=== PATIENT | female | born 2000 | race Caucasian/White ===

== ENCOUNTER 2023-07-20 17:34 | Inpatient (IN) | payer BC, OTHER, SELFPAY ==
[2023-07-20] VITALS (16 sets, daily range): BP systolic 98–128; BP diastolic 53–79; PULSE 93–115; RESP 16–18; TEMP 36.6–37.6
[2023-07-20 18:58] LABS: Hematocrit 34.6 % (36.0-48.0); Hemoglobin 11.2 g/dL (12.0-16.0); Mean Corpuscular HGB Conc 32.4 g/dL (29.9-35.2); Mean Corpuscular Hemoglobin 26.9 pg (26.7-34.0); Mean Platelet Volume 9.1 fL (9.5-13.5); Platelet Count 279 10^3/uL (150-450); Red Blood Count 4.17 10^6/uL (4.20-5.40); Red Cell Distribution Width 15.6 % (11.0-15.0); White Blood Count 10.9 10^3/uL (4.0-11.0)
[2023-07-20] MEDS: DINOPROSTONE 10 MG VAG INSERT.ER VAGINAL (19:00)
[2023-07-20 19:10] LABS: Amphetamine Screen Urine NEGATIVE (NEGATIVE); Barbiturates Screen Urine NEGATIVE (NEGATIVE); Benzodiazepines Screen Urine NEGATIVE (NEGATIVE); Buprenorphine Screen Urine NEGATIVE (NEGATIVE); Cannabinoid Screen Urine NEGATIVE (NEGATIVE); Cocaine Screen Urine NEGATIVE (NEGATIVE); Methadone Screen Urine NEGATIVE (NEGATIVE); Methamphetamines Screen Urine NEGATIVE (NEGATIVE); Opiate Screen Urine NEGATIVE (NEGATIVE); Oxycodone Screen Urine NEGATIVE (NEGATIVE); Phencyclidine Screen Urine NEGATIVE (NEGATIVE); Tricyclic Antidepressant Urine NEGATIVE (NEGATIVE)
[2023-07-20] MEDS: BUSPIRONE HCL 15 MG TABLET PO (21:12)
[2023-07-20] MEDS: IRON POLYSACCHARIDE COMPLEX 180 MG CAPSULE PO (21:12)
[2023-07-20] MEDS: LAMOTRIGINE 25 MG TABLET PO (21:12)
[2023-07-20] MEDS: INSULIN GLARGINE 300 UNIT/3 ML INSULN.PEN 38 UNIT SQ (21:13)
[2023-07-21] VITALS (53 sets, daily range): BP systolic 102–169; BP diastolic 55–95; PULSE 72–131; RESP 16–20; TEMP 36.6–37.1
[2023-07-21] MEDS: OXYTOCIN/0.9 % SODIUM CHLORIDE 10 UNITS/500 ML PLAST..BAG 3 UNIT IV (09:13)
[2023-07-21] MEDS: LACTATED RINGER'S SOLUTION 1,000 ML 125 ML IV ×2 (09:15→17:31)
[2023-07-21] MEDS: OMEPRAZOLE 40 MG CAPSULE.DR PO (09:15)
[2023-07-21] MEDS: BUSPIRONE HCL 15 MG TABLET PO ×2 (09:16→22:19)
[2023-07-21] MEDS: IRON POLYSACCHARIDE COMPLEX 180 MG CAPSULE PO ×2 (09:16→22:19)
[2023-07-21] MEDS: LAMOTRIGINE 25 MG TABLET PO ×2 (09:17→22:19)
--- NOTE | 2023-07-21 11:50 | PC.NURSE ---
1005 one hr post prandial BS is 116 per pt
--- NOTE | 2023-07-21 11:52 | PC.NURSE ---
1005 one hour postprandial BS 115 per pt
--- NOTE | 2023-07-21 16:37 | PC.NURSE ---
1620 Nivia notified of pt's inability to sit in a position which allows for monitoring due to pain, requesting epidural and order received for same, Dr Ramos called for epidural.
[2023-07-21] MEDS: ROPIVACAINE HCL/PF 400 MG/200 ML PREMIX 6 MG EPIDURAL (17:32)
[2023-07-21] MEDS: FENTANYL CITRATE/PF 100 MCG/2 ML VIAL EPIDURAL (17:33)
[2023-07-21] MEDS: LIDOCAINE HCL 2% PF 100 MG/5 ML VIAL INJ (17:33)
--- NOTE | 2023-07-21 19:36 | PM.EN ---
Event Note Event Note: patient feels urge to push. SVE /0 station. RN to remove catheter at this time .
--- NOTE | 2023-07-21 21:06 | PM.OBPRCVD ---
Procedure Procedure: with second degree repair events: Gestational Diabetes (insulin dependent ), Labor Induction and Labor Augmentation Intrapartal events: None Induction method: per pitocin protocol Delivery augmentation: rupture of membranes Delivery monitor: external FHT and external uterine Route of delivery: Episiotomy Description: none Laceration description: perineal - 2nd degree Delivery repair: Vicryl Estimated blood loss (mL): 350 Anesthesia type: Epidural Disposition: no change Infant Delivery date: 07/21/23 Gender: male presentation: vertex Placental delivery description: Spontaneous cord description: 3 Vessels heart rate - 1 minute: 100 bpm or Greater respiratory effort - 1 minute: Spontaneous/Strong Cry muscle tone - 1 minute: Active Movement reflex response - 1 minute: Minimal Response color - 1 minute: Bluish Hands or Feet total score - 1 minute: 8 heart rate - 5 minute: 100 bpm or Greater respiratory effort - 5 minute: Spontaneous/Strong Cry muscle tone - 5 minute: Active Movement reflex response - 5 minute: Prompt Response color - 5 minute: Bluish Hands or Feet total score - 5 minute: 9
[2023-07-21] MEDS: LIDOCAINE VISCOUS 2% 15 ML SOLUTION 5 ML TOPICAL (21:17)
[2023-07-21] MEDS: OXYTOCIN/0.9 % SODIUM CHLORIDE 20 UNITS/1,000 ML PLAST..BAG 125 UNIT IV (21:17)
--- NOTE | 2023-07-21 21:30 | PM.OBHP ---
OB - H&P: HPI History of Present Illness Chief complaint: Induction : 1 Para: 0 Gestational age based on last menstrual period: 38.5 Indications for induction: other (GDM insulin dependent ) History of Present Dating criteria: LMP confirmed by 1st trimester US care: good care Ultrasounds: normal 1st trimester US, normal mid trimester US and other (also saw MFM at [facility] for scans ) complications: gestational diabetes (insulin dependent) Medical complications OB: other (obesity) Labs Blood type: O (+) positive Rubella: immune RPR/VDLR: nonreactive GBS status: negative HBsAG: negative Review of Systems ROS Status of ROS: 10 or more systems reviewed and unremarkable except as noted in history and below Psychiatric: Reports: anxiety and other (history of ADHD, bipolar, depression, anxiety, GERD, migraines) PFSH PFSH Medical History (Updated 07/21/23 @ 21:38 by RITA LYN APRN, JAYLA) Insulin dependent gestational diabetes mellitus (GDM), antepartum Dehiscence of appendectomy wound ?T81.31XA - Disruption of external operation (surgical) wound, not elsewhere classified, initial encounter (ICD-10) Hx of migraines ?Z86.69 - Personal history of other diseases of the nervous system and sense organs (ICD-10) Postural orthostatic tachycardia syndrome [POTS] ?G90.A - Postural orthostatic tachycardia syndrome [POTS] (ICD-10) Bipolar disorder ?F31.9 - Bipolar disorder, unspecified (ICD-10) Surgical History (Updated 07/20/23 @ 18:49 by Anita Romeo) History of appendectomy ?Z90.49 - Acquired absence of other specified parts of digestive tract (ICD-10) Family History (Updated 07/20/23 @ 18:50 by Anita Romeo) Grandmother Family history of diabetes mellitus Family history of hypertension Grandfather Family history of diabetes mellitus Mother Family history of diabetes mellitus Family history of hypertension Social History Highest level of school completed/degree received: some college, no degree Meds Home Medications and Allergies Home Medications Medication Instructions Recorded Confirmed Type buspirone 15 mg tablet mg 07/20/23 History cholecalciferol (vitamin D3) 50 07/20/23 History mcg (2,000 unit) tablet cyproheptadine 4 mg tablet mg 07/20/23 History docusate sodium 100 mg capsule mg PO 07/20/23 History insulin glargine 100 unit/mL (3 38 unit subcut QDAY 07/20/23 07/20/23 History mL) subcutaneous pen lamotrigine 25 mg tablet mg 07/20/23 History loratadine 10 mg tablet mg 07/20/23 History magnesium oxide 400 mg (241.3 mg mg 07/20/23 History magnesium) tablet omeprazole 40 mg capsule,delayed mg 07/20/23 History release riboflavin (vitamin B2) 100 mg mg 07/20/23 History tablet (Vitamin B-2) Allergies Allergy/AdvReac Type Severity Reaction Status Date / Time penicillin G Allergy Severe throat Verified 07/20/23 18:38 swelling Exam Narrative Exam Narrative: assessment negative Constitutional Vital Signs, click to edit/add: Last Vital Signs Temp 98.7 F 07/21/23 17:53 Pulse 126 H 07/21/23 21:22 Resp 16 07/21/23 17:53 BP 136/72 07/21/23 21:22 O2 Del Method Room Air 07/21/23 05:25 Documenting provider has reviewed patient's vital signs: yes Common normals: no apparent distress General appearance: cooperative and comfortable Orientation/consciousness: Yes awake, Yes oriented to person, Yes oriented to place and Yes oriented to time HENMT Common normals: normocephalic Eye Common normals: EOMs intact bilaterally Neck & C-Spine Common normals: no lymphadenopathy Lymph Lymphatic: no lymphadenopathy noted Respiratory Common normals: normal respiratory effort Auscultation: clear to auscultation bilaterally Cardio Common normals: regular rate and regular rhythm Rate: regular rate Rhythm: regular rhythm GI Common normals: Normal to inspection, nondistended, normoactive bowel sounds present Common normals: no CVA tenderness Back & Pelvis Common normals: no CVA tenderness Extremity Common normals: normal to inspection and full ROM Neuro Common normals: oriented x3 Sensorium/orientation: awake, alert, oriented to person, oriented to place and oriented to time Psych Psychiatry clinicians, please identify where your Mental Status Exam is documented: Mental Status Exam documented in the separate MSE Common normals: mental status grossly normal, thought process normal and cooperative OB - A/P Assessment and Plan (1) GDM, class A2: (2) Term : Plan Induction of labor due to GDM Class A2
[2023-07-21] MEDS: IBUPROFEN 400 MG TABLET 800 MG PO (22:18)
[2023-07-22] VITALS (7 sets, daily range): BP systolic 114–125; BP diastolic 64–70; PULSE 96–110; RESP 16; TEMP 35.2–36.8
[2023-07-22] MEDS: BENZOCAINE/MENTHOL 85 GRAM SPRAY BOTTLE 1 APPLIC TOPICAL (02:28)
[2023-07-22] MEDS: GLYCERIN/WITCH HAZEL PADS 1 PAD TOPICAL (02:28)
[2023-07-22] MEDS: IBUPROFEN 400 MG TABLET 800 MG PO ×3 (06:15→20:43)
[2023-07-22 06:21] LABS: Basophils Percent Auto 0.1 % (0.2-2.0); Eosinophils Percent Auto 0.1 % (0.9-7.0); Hematocrit 28.8 % (36.0-48.0); Hemoglobin 9.1 g/dL (12.0-16.0); Immature Granulocytes Abs Auto 0.12 10^3/uL (0.00-0.03); Immature Granulocytes Pct Auto 0.9 % (0.0-0.5); Lymphocytes Absolute Auto 1.9 10^3/uL (1.2-3.8); Mean Corpuscular HGB Conc 31.6 g/dL (29.9-35.2); Mean Corpuscular Hemoglobin 26.7 pg (26.7-34.0); Mean Corpuscular Volume 84.5 fL (81.0-99.0); Mean Platelet Volume 9.2 fL (9.5-13.5); Monocytes Absolute Auto 0.9 10^3/uL (0.3-0.8); Monocytes Percent Auto 6.6 % (1.7-12.0); Neutrophils Absolute Auto 10.8 10^3/uL (1.4-6.5); Neutrophils Percent Auto 78.3 % (43.0-75.0); Platelet Count 245 10^3/uL (150-450); Red Blood Count 3.41 10^6/uL (4.20-5.40); Red Cell Distribution Width 15.8 % (11.0-15.0); White Blood Count 13.8 10^3/uL (4.0-11.0)
--- NOTE | 2023-07-22 07:12 | W.PC.ACHO ---
Registration Status: ADM IN Primary Language: Kazakh Preferred Language: Kazakh Active Medications Generic Name Dose Route Start Last Admin Trade Name [place] PRN Reason Stop Dose Admin Acetaminophen 1,000 mg 07/20/23 17:53 Acetaminophen 500 Mg Tablet PO Q6H PRN Fever Al Hydroxide/Mg Hydroxide 2,400 mg 07/21/23 21:20 Magnesium Hydroxide 2,400 Mg/10 Ml Oral.Susp PO Q6H PRN Dyspepsia Benzocaine/Menthol 1 applic 07/21/23 21:20 07/22/23 02:28 Benzocaine/Menthol 85 Gram [place] Bottle TOPICAL 1 applic Q2H PRN Administration Pain Buspirone HCl 15 mg 07/20/23 21:00 07/21/23 22:19 Buspirone Hcl 15 Mg Tablet PO 15 mg BID SELINA Administration Calcium Carbonate 500 mg 07/20/23 17:53 Calcium Carbonate 500 Mg (200mg Elemental) Tab Chew PO TID PRN Heartburn Carboprost Tromethamine 250 mcg 07/20/23 17:49 Carboprost Tromethamine 250 Mcg/Ml 1 Ml Vial IM 07/22/23 17:49 Q15M PRN Bleeding Diphtheria/Pertussis/Tetanus Vacc 0.5 ml 07/23/23 09:00 Adacel Diph,Pertuss(Acell),Tet Vac/Pf 0.5 Ml Adult Syringe IM 07/23/23 09:01 .ONCE ONE Docusate Sodium 100 mg 07/22/23 09:00 Docusate Sodium 100 Mg Capsule PO BID SELINA Ephedrine Sulfate 5 mg 07/21/23 16:24 Ephedrine Sulfate 50 Mg/Ml Vial IV 07/22/23 16:24 Q5M PRN Blood Pressure - Low Fentanyl Citrate 100 mcg 07/21/23 16:24 07/21/23 17:33 Fentanyl Citrate/Pf 100 Mcg/2 Ml Vial EPIDURAL 100 mcg ONCE PRN Administration epidural Lactated Ringer's 1,000 mls @ 125 mls/hr 07/20/23 18:00 07/21/23 17:31 Lactated Ringers IV 125 mls/hr .Q8H SELINA Administration Oxytocin/Sodium Chloride 10 units in 500 mls @ 6 mls/hr 07/21/23 06:30 07/21/23 09:13 Pitocin 10 Unit/500 Ml-Ns IV 1 milliunit/min CONT SELINA 3 mls/hr Administration Protocol 2 MILLIUNIT/MIN Ropivacaine/Sodium Chloride 400 mg in 200 mls @ 6 mls/hr 07/21/23 16:30 07/21/23 17:32 Naropin 0.2% 400 Mg/200 Ml Bag EPIDURAL 6 mls/hr Q24H SELINA Administration Ibuprofen 800 mg 07/21/23 21:30 07/22/23 06:15 Ibuprofen 400 Mg Tablet PO 800 mg Q8H SELINA Administration Insulin Glargine 38 unit 07/20/23 21:30 07/21/23 22:19 Insulin Glargine 300 Unit/3 Ml Insuln.Pen SQ Not Given Q24H SELINA Lamotrigine 25 mg 07/20/23 21:00 07/21/23 22:19 Lamotrigine 25 Mg Tablet PO 25 mg BID SELINA Administration Lidocaine 5 ml 07/20/23 17:49 07/21/23 21:17 Lidocaine Viscous 2% 15 Ml Solution TOPICAL 5 ml ONCE PRN Administration Pain Lidocaine 1 ml 07/20/23 17:49 Lidocaine Hcl 1% 200 Mg/20 Ml Mdv INJ ONCE PRN Pain Lidocaine 5 ml 07/21/23 16:24 07/21/23 17:33 Lidocaine Hcl 2% Pf 100 Mg/5 Ml Vial INJ 07/22/23 16:24 5 ml Q1H PRN Administration Pain Scale 7-10 Measles/Mumps/Rubella Vaccine Live 0.5 ml 07/23/23 09:00 Measles,Mumps,Rubella Vacc/Pf 0.5 Ml Vial SQ 07/23/23 09:01 .ONCE ONE Methylergonovine Maleate 0.2 mg 07/20/23 17:49 Methylergonovine Maleate 0.2 Mg/Ml Ampule IM 07/22/23 17:49 ONCE PRN Uterine Contractility/Contract Methylergonovine Maleate 0.2 mg 07/20/23 17:49 Methylergonovine Maleate 0.2 Mg Tablet PO 07/22/23 17:49 Q4H PRN Uterine Contractility/Contract Misoprostol 600 mcg 07/20/23 17:49 Misoprostol 100 Mcg Tablet PO 07/22/23 17:49 ONCE PRN Uterine Bleeding Misoprostol 800 mcg 07/20/23 17:49 Misoprostol 100 Mcg Tablet SL 07/22/23 17:49 ONCE PRN Uterine Bleeding Misoprostol 1,000 mcg 02/14/24 17:49 Misoprostol 100 Mcg Tablet RI 07/22/23 17:49 ONCE PRN Uterine Bleeding Omeprazole 40 mg 07/21/23 07:30 07/21/23 09:15 Omeprazole 40 Mg Capsule.Dr PO 40 mg 0730 SELINA Administration Ondansetron HCl 4 mg 07/20/23 17:49 Ondansetron Pf 4 Mg/2 Ml Vial IV Q6H PRN Nausea And Vomiting Ondansetron HCl 4 mg 07/20/23 17:49 Ondansetron 4 Mg Rapdis Tablet SL Q6H PRN Nausea And Vomiting Oxytocin 10 unit 07/20/23 17:49 Oxytocin 10 Unit/Ml Vial IM 07/22/23 17:49 ONCE PRN Bleeding Polysaccharide Iron Complex 180 mg 07/20/23 21:00 07/21/23 22:19 Iron Polysaccharide Complex 180 Mg Capsule PO 180 mg BID SELINA Administration Senna 17.2 mg 07/21/23 20:00 Sennosides 8.6 Mg Tablet PO QHS PRN Constipation Simethicone 80 mg 07/21/23 21:20 Simethicone 80 Mg Tab.Chew PO QID PRN Abdominal Distention Temazepam 15 mg 07/21/23 21:20 Temazepam 15 Mg Capsule PO QHS PRN Sleep Witch Aspen/Glycerin 1 pad 07/21/23 21:20 07/22/23 02:28 Glycerin/Witch [place] Pads TOPICAL 1 pad Q2H PRN Administration Pain Zolpidem Tartrate 5 mg 07/20/23 17:53 Zolpidem Tartrate 5 Mg Tablet PO HS PRN Sleep Diet Category Date Time Status Regular Consistency Diet Diet 07/21/23 21:20 Active Respiratory Oxygen Delivery Method Room Air Oxygen Delivery Method Room Air Oxygen Delivery Method Room Air Cardiology Heart Sounds Strong,Regular Heart Sounds Strong,Regular
[2023-07-22] MEDS: OMEPRAZOLE 40 MG CAPSULE.DR PO (08:49)
[2023-07-22] MEDS: DOCUSATE SODIUM 100 MG CAPSULE PO ×2 (08:50→21:00)
[2023-07-22] MEDS: BUSPIRONE HCL 15 MG TABLET PO ×2 (08:50→21:00)
[2023-07-22] MEDS: IRON POLYSACCHARIDE COMPLEX 180 MG CAPSULE PO ×2 (08:51→21:00)
[2023-07-22] MEDS: LAMOTRIGINE 25 MG TABLET PO ×2 (08:51→21:00)
--- NOTE | 2023-07-22 10:08 | P.OBPN_ITS ---
OB - PN: Subj Subjective Patient comments: no complaints and pain well controlled [place] status: doing well Exam Constitutional Vital Signs, click to edit/add: Last Vital Signs Temp 98.3 F 07/22/23 08:35 Pulse 100 H 07/22/23 08:35 Resp 16 07/22/23 08:35 BP 122/64 07/22/23 08:35 O2 Del Method Room Air 07/22/23 08:35 Documenting provider has reviewed patient's vital signs: yes Common normals: no apparent distress Respiratory Common normals: clear to auscultation bilaterally Cardio Common normals: regular rate and regular rhythm GI Common normals: Normal to inspection, nondistended, normoactive bowel sounds present Extremity Common normals: no clubbing, cyanosis or edema and no calf tenderness Results Labs Labs: Short CBC 07/22/23 Range/Units 05:54 WBC 13.8 H (4.0-11.0) 10^3/uL Hgb 9.1 L (12.0-16.0) g/dL Hct 28.8 L (36.0-48.0) % Plt Count 245 (150-450) 10^3/uL OB - PN: A/P Assessment and Plan (1) GDM, class A2: (2) Term : Plan - Vaginal Delivery day: 1 Plan: routine care Time Spent with Patient Time: Total time spent is greater than 50% in coordination of care (as documented) at patient's floor/unit and/or counseling patient: Total time spent with greater than 50% in coordination of care (as documented) at patient's floor/unit and/or counseling patient: less than 15 minutes
[2023-07-23] VITALS (8 sets, daily range): BP systolic 115–129; BP diastolic 60–69; PULSE 74–102; RESP 16; TEMP 36.7–36.8
[2023-07-23] MEDS: IBUPROFEN 400 MG TABLET 800 MG PO ×3 (05:00→21:18)
[2023-07-23] MEDS: OMEPRAZOLE 40 MG CAPSULE.DR PO (09:25)
[2023-07-23] MEDS: BUSPIRONE HCL 15 MG TABLET PO (09:26)
[2023-07-23] MEDS: DOCUSATE SODIUM 100 MG CAPSULE PO (09:26)
[2023-07-23] MEDS: IRON POLYSACCHARIDE COMPLEX 180 MG CAPSULE PO (09:27)
[2023-07-23] MEDS: LAMOTRIGINE 25 MG TABLET PO (09:27)
--- NOTE | 2023-07-23 12:26 | PM.OBPN ---
OB - PN: Subj Subjective Patient comments: no complaints and pain well controlled [place] status: doing well Exam Constitutional Vital Signs, click to edit/add: Last Vital Signs Temp 98.2 F 07/23/23 08:30 Pulse 100 H 07/23/23 08:30 Resp 16 07/23/23 08:30 BP 115/62 07/23/23 08:30 O2 Del Method Room Air 07/23/23 08:30 Documenting provider has reviewed patient's vital signs: yes Common normals: no apparent distress Respiratory Common normals: normal respiratory effort and clear to auscultation bilaterally Cardio Common normals: regular rate and regular rhythm GI Common normals: Normal to inspection, nondistended, normoactive bowel sounds present Extremity Common normals: no calf tenderness OB - PN: A/P Assessment and Plan (1) GDM, class A2: (2) Term : Plan - Vaginal Delivery day: 2 Plan: routine care, discharge home and follow up 6 weeks Time Spent with Patient Time: Total time spent is greater than 50% in coordination of care (as documented) at patient's floor/unit and/or counseling patient: Total time spent with greater than 50% in coordination of care (as documented) at patient's floor/unit and/or counseling patient: less than 15 minutes
[2023-07-23] MEDS: BENZOCAINE/MENTHOL 85 GRAM SPRAY BOTTLE 1 APPLIC TOPICAL (16:32)
[2023-07-23] MEDS: GLYCERIN/WITCH HAZEL PADS 1 PAD TOPICAL (16:32)
--- NOTE | 2023-07-23 19:25 | W.PC.ACHO ---
Registration Status: ADM IN Primary Language: Israeli Preferred Language: Israeli Active Medications Generic Name Dose Route Start Last Admin Trade Name Freq PRN Reason Stop Dose Admin Acetaminophen 1,000 mg 07/20/23 17:53 Acetaminophen 500 Mg Tablet PO Q6H PRN Fever Al Hydroxide/Mg Hydroxide 2,400 mg 07/21/23 21:20 Magnesium Hydroxide 2,400 Mg/10 Ml Oral.Susp PO Q6H PRN Dyspepsia Benzocaine/Menthol 1 applic 07/21/23 21:20 07/23/23 16:32 Benzocaine/Menthol 85 Gram [place] Bottle TOPICAL 1 applic Q2H PRN Administration Pain Buspirone HCl 15 mg 07/20/23 21:00 07/23/23 09:26 Buspirone Hcl 15 Mg Tablet PO 15 mg BID SELINA Administration Calcium Carbonate 500 mg 07/20/23 17:53 Calcium Carbonate 500 Mg (200mg Elemental) Tab Chew PO TID PRN Heartburn Docusate Sodium 100 mg 07/22/23 09:00 07/23/23 09:26 Docusate Sodium 100 Mg Capsule PO 100 mg BID [facility] Administration Lactated Ringer's 1,000 mls @ 125 mls/hr 07/20/23 18:00 07/22/23 07:31 Lactated Ringers IV Infused .Q8H SELINA Infusion Ibuprofen 800 mg 07/21/23 21:30 07/23/23 13:15 Ibuprofen 400 Mg Tablet PO 800 mg Q8H SELINA Administration Insulin Glargine 38 unit 07/20/23 21:30 07/23/23 00:23 Insulin Glargine 300 Unit/3 Ml Insuln.Pen SQ Not Given Q24H [facility] Lamotrigine 25 mg 07/20/23 21:00 07/23/23 09:27 Lamotrigine 25 Mg Tablet PO 25 mg BID SELINA Administration Omeprazole 40 mg 07/21/23 07:30 07/23/23 09:25 Omeprazole 40 Mg Capsule.Dr PO 40 mg 0730 SELINA Administration Ondansetron HCl 4 mg 07/20/23 17:49 Ondansetron Pf 4 Mg/2 Ml Vial IV Q6H PRN Nausea And Vomiting Ondansetron HCl 4 mg 07/20/23 17:49 Ondansetron 4 Mg Rapdis Tablet SL Q6H PRN Nausea And Vomiting Polysaccharide Iron Complex 180 mg 07/20/23 21:00 07/23/23 09:27 Iron Polysaccharide Complex 180 Mg Capsule PO 180 mg BID SELINA Administration Senna 17.2 mg 07/21/23 20:00 Sennosides 8.6 Mg Tablet PO QHS PRN Constipation Simethicone 80 mg 07/21/23 21:20 Simethicone 80 Mg Tab.Chew PO QID PRN Abdominal Distention Temazepam 15 mg 07/21/23 21:20 Temazepam 15 Mg Capsule PO QHS PRN Sleep Witch Aspen/Glycerin 1 pad 07/21/23 21:20 07/23/23 16:32 Glycerin/Witch [place] Pads TOPICAL 1 pad Q2H PRN Administration Pain Respiratory Oxygen Delivery Method Room Air Oxygen Delivery Method Room Air Oxygen Delivery Method Room Air Cardiology Heart Sounds Strong,Regular Bowels Date of Last Bowel Movement [ 07/23/23 All Quadrants] Date of Last Bowel Movement [ 07/23/23 All Quadrants]
--- NOTE | 2023-07-24 00:57 | PC.NURSE ---
Patient educated on the need to burp baby after syringe feedings. Explained to keep baby under radiant warmer but sit to the baby up to burp after feedings. Baby spit up three times during assessment with nurse recruitment internship. Nurse recruitment internship held and burped baby. Patient denies any needs and RN was informed.
== END 2023-07-23 23:55 | disposition home or self-care (01) | DRG 807 ==
PROVIDERS: Admitting Provider Midwife; PCP Family Medicine; Visit Provider Midwife
DX: O24.424 Gestational diabetes mellitus in childbirth, insulin controlled (principal); Z37.0 Single live birth; O70.1 Second degree perineal laceration during delivery; Z3A.38 38 weeks gestation of pregnancy; Z87.440 Personal history of urinary (tract) infections; O99.214 Obesity complicating childbirth; E66.01 Morbid (severe) obesity due to excess calories; O99.344 Other mental disorders complicating childbirth; F41.8 Other specified anxiety disorders; F31.9 Bipolar disorder, unspecified; O99.62 Diseases of the digestive system complicating childbirth; K21.9 Gastro-esophageal reflux disease without esophagitis
CPT/HCPCS: 36415; 59050; 59410; 80307; 82947; 85025; 85027; 86850; 86900; 86901; 96365; 96366; 96376; J2795; J3010

== ENCOUNTER 2023-07-26 08:36 | Outpatient (OUT) | payer BC, OTHER, SELFPAY ==
--- OUTSIDE RECORDS SUMMARY | 2023-07-26 08:44 | XMS_ITS | CCD ---
Author Name Unknown Address [id number] [place] [address] Organization [facility] Care Team Providers Care Power Generation Engineer Name Role Phone MARKER, SAGRARIO Admitting Unavailable MARKER, SAGRARIO Attending Unavailable REQUEST, NONE LISTED Primary Care Unavailable Martita Villarreal Primary Care Provider OLIVIER YATES Referring UnavailMARTITA Decker Primary Care Unavailable Yara Duong MD Primary Care Provider YARA DUONG Referring Unavailable YARA DUONG Primary Care Unavailable CHERELLE COSME Attending Unavailable RITA HINOJOSA Referring Unavailable YARA DUONG Primary Care Unavailable ISABEL ARAGON Attending Unavailable NESSA MALDONADO Referring Unavailable DERIAN BATES Attending Unavailable RITA HINOJOSA Referring Unavailable YARA DUONG Primary Care Unavailable Yara Duong MD Primary Care Provider Bill ARMATURE REPAIRER, [place] Unavailable MORENA MEJÍA Attending Unavailable FLORORITA Referring Unavailable FLORORITA Attending Unavailable MENA SMITH Attending Unavailable FLORORITA Referring Unavailable FLORO, RITA Campbell Attending Unavailable FLORO, RITA Campbell Referring Unavailable FLORO, RITA Campbell Attending Unavailable FLORO, RITA Campbell Referring Unavailable BILL, [place] Attending Unavailab le FLORORITA Attending Unavailable FLORO, RITA Campbell Referring Unavailable FLORO, RITA Campbell Attending Unavailable FLORO, RITA Campbell Attending Unavailable FLORO, RITA Campbell Referring Unavailable FLORO, RITA Campbell Referring Unavailable FLORO, RITA L Attending Unavailable RITA HINOJOSA Referring Unavailable RITA HINOJOSA Referring Unavailable RITA HINOJOSA Attending Unavailable RITA HINOJOSA Referring Unavailable Allergies Allergy Classification Reported Allergen(s) Allergy Type Date of Onset Reaction(s) Facility (1 source) Penicillin Drug Allergy [facility] Repository (3 sources) Penicillins; Translations: [PENICILLINS] Propensity to adverse reactions to drug 09-03-19 18 [facility] [employer] Work Phone: (9 sources) Penicillins Propensity to adverse reactions to drug 09-03-19 18 [facility] (1 source) Sulfamethoxazole / Trimethoprim Drug Allergy 06-30-19 22 [facility] (5 sources) Penicillin G Drug Allergy 10-06-19 23 Unknown [facility] Medications Current Medications Medication Drug Class(es) Dates Sig (Normalized) Sig (Original) busPIRone hydrochloride 15 mg oral tablet (15 sources) Start: 06-09-2023 take 1 tablet by mouth in the morning busPIRone (Buspar) 15 MG tablet Indications: Generalized anxiety disorder (CMS/HCC) Take 1 tablet (15 mg) by mouth in the morning and 1 tablet (15 mg) before bedtime. 180 tablet 1 06/09/2023 Active take 1 tablet by mouth twice roe ly busPIRone (BUSPAR) 15 MG tablet Take 15 mg by mouth 2 times daily 0 Active cetirizine hydrochloride 10 mg oral tablet (1 source) Histamine-1 Receptor Antagonist take 1 tablet by mouth once daily cetirizine (ZYRTEC) 10 MG tablet Take 10 mg by mouth daily 0 Active cholecalciferol 0.05 mg oral tablet (14 sources) Vitamin D Start: cholecalciferol, vitamin D3, 2,000 units tablet 1 tablet (2,000 Units total) in the morning. 0 02/05/2022 Active take 1 tablet by mouth in the mo rning cholecalciferol (Vitamin D-3) 50 MCG (1999 UT) tablet Take 50 mcg by mouth in the morning. 0 Active cyproheptadine hydrochloride 4 mg oral tablet (14 sources) Start: 01-28-2023 take 1 tablet by mouth at bedtime cyproheptadine (PERIACTIN) 4 mg tablet Indications: Migraine without aura, not intractable, without status migrainosus Take 1 tablet (4 mg total) by mouth in the morning and at bedtime. 60 tablet 5 01/28/2023 Active docusate sodium 100 mg oral capsule (14 sources) Start: 05-10-2023 take 1 capsule by mouth in the morning docusate sodium (Colace) 100 MG capsule Indications: Anemia during in third trimester Take 1 capsule (100 mg) by mouth in the morning and 1 capsule (100 mg) before bedtime. 60 capsule 4 05/10/2023 Active drospirenone 3 mg / ethinyl estradiol 0.03 mg oral tablet (3 sources) Progestin, Estrogen Start: 03-04-2020 take 1 tablet by mouth once daily drospirenone-ethiny l estradiol (SHIV 28) 3-0.03 MG TABS Indications: Irregular menses Take 1 tablet by mouth daily 1 packet 12 08/28/2020 Active ferrous sulfate 325 mg delayed release oral tablet (13 sources) Start: 05-10-2023 End: 05-09-2024 take 1 tablet by mouth in the morning ferrous sulfate (Fe Tabs) 325 (65 Fe) MG EC tablet Indications: Anemia during in third trimester Take 1 tablet (325 mg) by mouth in the morning and 1 tablet (325 mg) in the evening. Take with meals. Do not crush, chew, or split.. 60 tablet 4 05/10/2023 05/09/2024 Active hydrOXYzine pamoate 25 mg oral capsule (10 sources) Antihistamine hydrOXYzine (VISTARIL) 25 mg capsule Take 1 capsule (25 mg total) by mouth. 0 Active 3 ml insulin glargine 100 unt/ml pen injector (15 sources) Insulin Analog Start: 07-14-2023 End: 07-18-2023 insulin glargine (LANTUS SOLOSTAR U-100 INSULIN) 100 unit/mL (3 mL) insulin pen Indications: Insulin controlled gestational diabetes mellitus (GDM) during , antepartum Inject 38U subcutaneously into abdomen every evening, prime with 2U 15 mL 0 07/18/2023 Active Start: 07-05-2023 End: 07-12-2023 insulin glargine (LANTUS LAURA OSTAR U-100 INSULIN) 100 unit/mL (3 mL) insulin pen Indications: Insulin controlled gestational diabetes mellitus (GDM) during , antepartum Inject 40U subcutaneously into abdomen every evening, prime with 2U 15 mL 0 07/12/2023 Active Start: 06-21-2023 Insulin Glargi ne Solostar 100 UNIT/ML solution pen-injector Inject 20U subcutaneously into abdomen every evening, prime with 2U 0 06/21/2023 Active Start: 06-21-2023 End: 07-01-2023 insulin glargine (LANTUS LAURA OSTAR U-100 INSULIN) 100 unit/mL (3 mL) insulin pen Indications: Insulin controlled gestational diabetes mellitus (GDM) during , antepartum Inject 27U subcutaneously into abdomen every evening, prime with 2U 15 mL 0 07/01/2023 Active lamoTRIgine 25 mg oral tablet (13 sources) Mood Stabilizer, Anti-epileptic Agent Start: 12-21-2022 End: 12-21-2023 take 2 tablets by mouth in the morning lamoTRIgine (LaMICtal) 25 MG tablet Indications: Bipolar 1 disorder (CMS/HCC) Take 2 tablets (50 mg) by mouth in the morning. Take 2 tablets of 25mg. 180 tablet 3 12/21/2022 12/21/2023 Active take 1 tablet by leanna th in the morning, then take 1 tablet by mouth at bedtime lamoTRIgine (LaMICtal) 25 mg tablet Take 1 tablet (25 mg total) by mouth in the morning and 1 tablet (25 mg total) before bedtime. 0 Active loratadine 10 mg oral tablet (14 sources) Start: 05-26-2022 take 1 tablet by mouth once daily loratadine (Claritin) 10 MG tablet Indications: Seasonal allergies Take 1 tablet (10 mg) by mouth 1 (one) time each day at the same time 90 tablet 3 06/27/2023 Active magnesium oxide 400 mg oral tablet (14 sources) Start: 11-01-2022 take 1 tablet by mouth in the morning MAGnesium-Oxide 400 (240 Mg) MG tablet Take 400 mg by mouth in the morning. 0 11/01/2022 Active nortriptyline 25 mg oral capsule (1 source) Tricyclic Antidepressant Start: 06-16-2020 take 2 capsules by mouth once daily at bedtime nortriptyline (PAMELOR) 25 MG capsule TAKE TWO CAPSULES BY MOUTH EVERY NIGHT AT BEDTIME 60 capsule 0 06/16/2020 Active nystatin 100 unt/mg topical powder (9 sources) Polyene Antifungal Start: 07-14-2022 nystatin (MYCOSTATIN) powder 2 (two) times a day as needed. 0 07/14/2022 Active omeprazole 40 mg delayed release oral capsule (15 sources) Proton Pump Inhibitor take 1 capsule by mouth before mealtime omeprazole (PriLOSEC) [address] capsule Take 40 mg by mouth in the morning. Take before meals. 0 Active ondansetron 4 mg oral tablet (14 sources) Serotonin-3 Receptor Antagonist Start: 06-10-2022 take 1 tablet by mouth every twelve hours as needed for nausea and vomiting ondansetron (ZOFRAN) 4 mg tablet Indications: Chronic migraine w/o aura w/o status migrainosus, not intractable TAKE ONE TABLET BY MOUTH EVERY 12 HOURS NEEDED FOR NAUSEA AND VOMITING 20 tablet 2 06/10/2022 Active ondansetron (Zof ran) 4 MG tablet Take 4 mg by mouth every 12 (twelve) hours if needed. 0 Active no115/iron/folic ac id ( 19 ORAL) (9 sources) no115/i miladis/folic acid ( 19 ORAL) Take by mouth daily. 0 Active no115/i miladis/folic acid ( 19 ORAL) Take by mouth. 0 Active Vit-Fe Fumarate-FA ( Plus/Iron) 27-1 MG tablet (5 sources) Start: 05-10-2023 take 1 tablet by mouth in the morning Vit-Fe Fumarate-FA ( Plus/Iron) 27-1 MG tablet Indications: Encounter for supervision of normal first , third trimester Take 1 tablet by mouth in the morning. 30 tablet 11 05/10/2023 Active riboflavin 100 mg oral tablet (14 sources) Start: 06-10-2022 take 1 tablet by mouth in the morning riboflavin, vitamin B2, 100 mg tablet Indications: Migraine without aura, not intractable, without status migrainosus Take 1 tablet (100 mg total) by mouth in the morning. 30 tablet 5 06/10/2022 Active rizatriptan 10 mg oral tablet (1 source) Serotonin-1b and Serotonin-1d Receptor Agonist rizatriptan (MAXALT) 10 MG tablet Take 10 mg by mouth once as needed for Migraine May repeat in 2 hours if needed 0 Active sertraline 50 mg oral tablet (1 source) Serotonin Reuptake Inhibitor take 1 tablet by mouth once daily sertraline (ZOLOFT) 50 MG tablet Take 50 mg by mouth daily 0 Active Completed/Discontinued Medications Medication Drug Class(es) Dates Sig (Normalized) Sig (Original) metFORMIN hydrochloride 500 mg oral tablet (3 sources) Biguanide Start: 03-16-2022 End: 06-21-2023 take 1 tablet by mouth three times daily metFORMIN (GLUCOPHAGE) 500 mg tablet Take 1 tablet (500 mg total) by mouth 3 (three) times a day. 0 03/16/2022 06/21/2023 Discontinued (Therapy completed) ubidecarenone 100 mg oral capsule (3 sources) Start: 01-28-2023 End: 06-21-2023 take 1 capsule by mouth once in the morning coenzyme Q10 100 mg capsule Indications: Migraine without aura, not intractable, without status migrainosus Take 1 capsule (100 mg total) by mouth in the morning. 30 capsule 5 01/28/2023 06/21/2023 Discontinued (Therapy completed) Problems Active Problems Problem Classification Problem Date Documented Date Episodic/Chronic Anxiety disorders (20 sources) Anxiety; Translations: [Anxiety disorder, unspecified] Onset: 10-04-2018 01-20-2021 Chronic Cardiac dysrhythmias (6 sources) Postural orthostatic tachycardia syndrome ; Translations: [Postural orthostatic tachycardia syndrome (POTS)] Onset: 06-24-2022 06-21-2023 Chronic Diabetes or abnormal glucose tolerance complicating ; childbirth; or the puerperium (17 sources) Gestational diabetes mellitus; Translations: [Gestational diabetes mellitus in , unspecified control] Onset: 06-21-2023 06-21-2023 Episodic Disorders of lipid metabolism (5 sources) Mixed hyperlipidemia; Translations: [Mixed hyperlipidemia] Onset: 11-05-2021 11-12-2022 Chronic Esophageal disorders (5 sources) Gastroesophageal reflux disease; Translations: [Gastro-esophageal reflux disease without esophagitis] Onset: 06-06-2019 11-12-2022 Chronic Headache; including migraine (20 sources) Migraine without aura, not refractory ; Translations: [Migraine without aura, not intractable, without status migrainosus] Onset: 08-22-2018 01-20-2021 Chronic Malaise and fatigue (5 sources) Fatigue; Translations: [Chronic fatigue, unspecified] Onset: 01-18-2022 11-12-2022 Chronic Mood disorders (20 sources) Depressive disorder; Translations: [Depression] Onset: 01-20-2021 01-20-2021 Chronic Other complications of (1 source) Maternal obesity complicating , childbirth and the puerperium, antepartum; Translations: [Obesity complicating , unspecified trimester] 06-21-2023 Chronic Other complications of (4 sources) Abnormal findings on screening of mother; Translations: [Other abnormal findings on screening of mother] 07-19-2023 Episodic Other endocrine disorders (5 sources) Polycystic ovary; Translations: [Polycystic ovarian syndrome] Onset: 11-12-2022 11-12-2022 Chronic Other nutritional; endocrine; and metabolic disorders (5 sources) Body mass index 40+ - severely obese; Translations: [Morbid (severe) obesity due to excess calories] Onset: 12-14-2021 11-12-2022 Chronic Other and delivery including normal (2 sources) Normal ; Translations: [Encounter for supervision of normal first , third trimester] 07-19-2023 Episodic Other upper respiratory infections (5 sources) Chronic sinusitis; Translations: [Chronic sinusitis, unspecified] Onset: 06-29-2021 11-12-2022 Chronic Residual codes; unclassified (4 sources) Procedure and treatment not carried out due to patient leaving prior to being seen by health care provider; Translations: [PROC AND TX NOT CARRIED OUT PT LEAVE] Onset: 08-21-2018 Episodic Residual codes; unclassified (1 source) Gestation period, 34 weeks; Translations: [34 weeks gestation of ] 06-21-2023 Episodic Unclassified (1 source) Cancer cervix screening status; Translations: [Screening for cervical cancer] Unclassified (1 source) Gestational Diabetes Onset: 06-21-2023 Unclassified (1 source) [id number] Onset: 06-21-2023 Unclassified (5 sources) OB Reminders Onset: 01-14-2023 01-14-2023 Past or Other Problems Problem Classification Problem Date Documented Da te Episodic/Chronic Conditions associated with dizziness or vertigo (5 sources) Vertigo; Translations: [Dizziness and giddiness] Onset: 06-25-2022 11-12-2022 Episodic Diabetes mellitus without complication (5 sources) Type 2 diabetes mellitus without complication; Translations: [Type 2 diabetes mellitus without complications] Onset: 05-19-2021 Resolved: 06-27-2023 06-27-2023 Chronic Diabetes mellitus without complication (5 sources) Hyperglycemia; Translations: [Hyperglycemia, unspecified] Onset: 03-30-2021 11-12-2022 Episodic Mood disorders (14 sources) Mood disorders Onset: 01-28-2023 Resolved: 06-27-2023 01-28-2023 Unclassified (9 sources) Onset: 01-28-2023 01-28-2023 Results Test Name Value Interpretation Reference Range Facility [facility] CBC WITH PLATELET NO DI FFERENTIALon 07-20-2023 Erythrocyte distribution width (RBC) [Ratio] 15.6 % High 11.0 - 15.0 % [facility] Hematocrit (Bld) [Volume fraction] 34.6 % Low 36.0 - 48.0 % [facility] Hemoglobin (Bld) [Mass/Vol] 11.2 g/dL Low 12.0 - 16.0 g/dL [facility] Interpretation and review of laboratory results Abnormal [facility] MCH (RBC) [Entitic mass] 26.9 pg 26.7 - 34.0 pg [facility] MCHC (RBC) [Mass/Vol] 32.4 g/dL 29.9 - 35.2 g/dL [facility] MCV (RBC) [Entitic vol] 83.0 fL 81.0 - 99.0 fL [facility] Platelet mean volume (Bld) [Entitic vol] 9.1 fL Low 9.5 - 13.5 fL [facility] TB PLT 279 [facility] RBC 4.17 Low [facility] WBC 10.9 [facility] US BIOPHYSICAL PROFILE WO NON STRESS TESTINGon 07-19-2023 US BIOPHYSICAL PROFILE WO NON STRESS TESTING FINDINGS: Breathing Movements 2 Gross Body Movements 2 Tone 2 Qualitative amniotic fluid volume 2 A single, viable intrauterine is present. Heart rate is 136 bpm. FILIBERTO 12.0 cm. Cervix closed 4.0 cm length. Posterior lateral placenta. IMPRESSION: Normal biophysical profile. TRANSCRIBED BY: ELECTRONICALLY SIGNED BY: Binh Mares MD Normal Not Available US OB FOLLOW UP TRANSABDOMIN AL APPROACHon 07-15-2023 US OB FOLLOW UP TRANSABDOMINAL APPROACH This is a summary report. The complete report is available in the patient's medical record. If you cannot access the medical record, please contact the sending organization for a detailed fax or copy. US OB FOLLOW UP TRANSABDOMINAL APPROACH: 07/15/2023 4:28 PM CLINICAL HISTORY: Growth COMPARISON: July 12, 2023 Transabdominal ultrasound of the gravid uterus was performed. FINDINGS: A single live intrauterine is noted in cephalic position. cardiac activity measures approximately 145 beats per minute. The lower uterine segment and cervix are seen, and appear within normal limits. The cervix measures approximately 5.26 cm in longitudinal length. A grade 1-appearing placenta is posterior without evidence of an abnormal subplacental collection or previa. The amniotic fluid volume appears within normal limits for gestation. The FILIBERTO measures 11.3 cm. The following measurements were obtained: BPD 9.16 cm, HC 33.54 cm, AC 33.8 cm, FL 7.4 cm, which corresponds to an aggregate gestational age of 37 weeks 6 days. Estimated weight is 3303 g which places this fetus in the 59.1% based on LMP.. There is no free fluid noted in the maternal pelvis. Neither maternal ovary is identified. IMPRESSION: SINGLE LIVE INTRAUTERINE CORRESPONDING TO APPROXIMATELY 37 WEEKS 6 DAYS WITH AN EXPECTED DUE DATE OF JULY 30, 2023. NO GROSS ABNORMALITIES IDENTIFIED, WITHIN THE LIMITS OF THE STUDY. ELECTRONICALLY SIGNED BY: Cris Baeza DO Normal Not Available US BIOPHYSICAL PROFILE WO NON STRESS TESTINGon 07-12-2023 US BIOPHYSICAL PROFILE WO NON STRESS TESTING EXAM: US BIOPHYSICAL PROFILE WO NON STRESS TESTING DATE: 07/12/2023 10:02 AM CLINICAL HISTORY: Nonreactive stress test. Approximately 37 weeks gestation. COMPARISON: OB ultrasound 07/08/2023. TECHNIQUE: Grayscale evaluation of the fetus was performed for biophysical profile purposes and does not constitute an anatomic survey. FINDINGS: The study is somewhat limited by the patient's body habitus. cardiac activity is measured at 151 bpm. A single live intrauterine is noted in cephalic position. The cervix appears closed, measuring approximately 4.3 cm in longitudinal length. A grade 2 placenta is posterior without evidence of previa. The amniotic fluid index measures approximately 11.2 cm measured in 4 quadrants, which is 28th percentile for gestation. Points were awarded for the following: * body movement 2 out of 2 * tone 2 out of 2 * breathing 2 out of 2 *Amniotic fluid volume 2 out of 2 Ultrasound biophysical profile score 8 out of 8. IMPRESSION: ULTRASOUND BIOPHYSICAL PROFILE SCORE OF 8 OUT OF 8. ELECTRONICALLY SIGNED BY: Jerome Irwin MD Normal Not Available US BIOPHYSICAL PROFILE WO NON STRESS TESTINGon 07-08-2023 US BIOPHYSICAL PROFILE WO NON STRESS TESTING FINDINGS: Single live intrauterine . heart rate 141 bpm. Cephalic position. Grade 2 posterior placenta. Cervical length 4.1 cm. FILIBERTO 15.5 cm. Biophysical profile as follows: Breathin/2. Tone: 2/2. Gross movement: 2/2. FILIBERTO: 2/2. Total: 8/8. IMPRESSION: Impression: Biophysical profile with total 8/8. ELECTRONICALLY SIGNED BY: Dashawn López MD Normal Not Available US BIOPHYSICAL PROFILE WO NON STRESS TESTINGon 07-01-2023 US BIOPHYSICAL PROFILE WO NON STRESS TESTING EXAMINATION: BIOPHYSICAL PROFILE CLINICAL HISTORY: COMPARISONS: None available. FINDINGS: Transabdominal ultrasound of the gravid uterus was performed for 30 minutes or less for evaluation of biophysical profile with scoring as follows: 2 out of 2 for breathing 2 out of 2 for movement. 2 out of 2 for tone. 2 out of 2 for amniotic fluid volume. heart rate of149 beats per minute is documented. Amniotic fluid index calculated at 16.4, 64.8. IMPRESSION: BIOPHYSICAL PROFILE WITH A SCORE OF 8 OUT OF 8. CLINICAL CORRELATION RECOMMENDED. ELECTRONICALLY SIGNED BY: Iraj Khan MD Normal Not Available US OB FOLLOW UP TRANSABDOMIN AL APPROACHon 06-24-2023 US OB FOLLOW UP TRANSABDOMINAL APPROACH HISTORY: Gestational diabetes. COMPARISON: 06/17/2023. TECHNIQUE: Sonography of the pelvis was performed by transabdominal technique. Images were obtained and stored in a permanent archive. RESULT: Gestation: Single present. Position: Cephalic Placenta: Location: Posterior Grade: 1 Previa: absent Cervix: Closed measuring 5.3 cm in length. Cardiac activity: 134 bpm BPD: 8.7 cm HC: 30.8 cm AC: 32.1 cm FL: 7.0 cm Amniotic fluid: 124 cc, 35th percentile Estimated weight (EFW): 5 pounds 13 ounces, 31st percentile Estimated gestational age: 35 weeks 3 days estimated gestational age by composite. Anatomy: No gross anomalies in the visualized anatomy. IMPRESSION: Single, live intrauterine with estimated 35 weeks 3 days gestational age. ELECTRONICALLY SIGNED BY: Jose Grissom MD Normal Not Available No Panel Informationon 06-21 [facility] OB FOLLOW UP TRANSABDOMIN AL APPROACHon 06-17-2023 OB FOLLOW UP TRANSABDOMINAL APPROACH This is a summary report. The complete report is available in the patient's medical record. If you cannot access the medical record, please contact the sending organization for a detailed fax or copy. US OB FOLLOW UP TRANSABDOMINAL APPROACH: 06/17/2023 4:14 PM CLINICAL HISTORY: Ultrasound of. OB, limited, for growth COMPARISON: June 10, 2023 Transabdominal ultrasound of the gravid uterus was performed. FINDINGS: A single live intrauterine is noted in cephalic position. cardiac activity measures approximately 134 beats per minute. The cervix measures approximately 5.58 cm in longitudinal length. A grade 1-appearing placenta is posterior without evidence of an abnormal subplacental collection or previa. The amniotic fluid volume appears within normal limits for gestation. The FILIBERTO is 11.61 cm The following measurements were obtained: BPD 8.52 cm, HC 30.8 cm, AC 30.3 cm, FL 6.8 cm, which corresponds to an aggregate gestational age of 34 weeks 3 days. Estimated weight is 2429 g. This places this fetus in the 31.6 percentile based on LMP. . There is no free fluid noted in the maternal pelvis. Neither maternal ovary is identified. IMPRESSION: SINGLE LIVE INTRAUTERINE CORRESPONDING TO APPROXIMATELY 34 WEEKS 3 DAYS WITH AN EXPECTED DUE DATE OF JULY 26, 2023.. NO GROSS ABNORMALITIES IDENTIFIED, WITHIN THE LIMITS OF THE STUDY. ELECTRONICALLY SIGNED BY: Cris Baeza DO Normal Not Available US OB FOLLOW UP TRANSABDOMIN AL APPROACHon 06-10-2023 OB FOLLOW UP TRANSABDOMINAL APPROACH US OB FOLLOW UP TRANSABDOMINAL APPROACH: 06/10/2023 4:15 PM CLINICAL HISTORY: . COMPARISON: Transabdominal ultrasound of the gravid uterus was performed. FINDINGS: A single live intrauterine is noted in cephalic position. cardiac activity measures approximately 143 beats per minute. The cervix measures approximately 4.17 cm cm in longitudinal length. A grade 1-appearing placenta is posterior without evidence of an abnormal subplacental collection or previa. The amniotic fluid volume appears within normal limits for gestation. It measures 15.68 cm The following measurements were obtained: BPD 8.42 cm, HC 30.54 cm, AC 30.03 cm, FL 6.6 cm, which corresponds to an aggregate gestational age of 34 weeks 0 days. Estimated weight is 2322 g . cerebral ventricles, posterior fossa, spine, kidneys, urinary bladder, four-chamber heart, diaphragm, stomach, three-vessel cord, cord insertion and extremities appear within normal limits. There is no free fluid noted in the maternal pelvis. Neither maternal ovary is identified. IMPRESSION: SINGLE LIVE INTRAUTERINE CORRESPONDING TO APPROXIMATELY 34 WEEKS 0 DAYS WITH AN EXPECTED DUE date with expected due date of July 22, 2023 NO GROSS ABNORMALITIES IDENTIFIED, WITHIN THE LIMITS OF THE STUDY. ELECTRONICALLY SIGNED BY: Cris Baeza DO Normal Not Available US OB FOLLOW UP TRANSABDOMIN AL APPROACHon 05-23-2023 US OB FOLLOW UP TRANSABDOMINAL APPROACH US OB FOLLOW UP TRANSABDOMINAL APPROACH: 05/23/2023 4:55 PM CLINICAL HISTORY: Ultrasound. COMPARISON: March 14, 2023 Transabdominal ultrasound of the gravid uterus was performed. FINDINGS: A single live intrauterine is noted in cephalic position. cardiac activity measures approximately 138 beats per minute. The cervix measures approximately 5.44 cm in longitudinal length. A grade 1-appearing placenta is fundal without evidence of an abnormal subplacental collection or previa. The amniotic fluid index appears within normal limits for gestation. It measures 12.87 cm The following measurements were obtained: BPD 7.46 cm, HC 27.82 cm, AC 26.81 cm, FL 5.85 cm, which corresponds to an aggregate gestational age of 30 weeks 3 days. Estimated weight is 1617 g which places this fetus in the 18.4 percentile. There is no free fluid noted in the maternal pelvis. Neither maternal ovary is identified. IMPRESSION: SINGLE LIVE INTRAUTERINE CORRESPONDING TO APPROXIMATELY 30 WEEKS 3 DAYS WITH AN EXPECTED DUE DATE OF JULY 29, 2023. NO GROSS ABNORMALITIES IDENTIFIED, WITHIN THE LIMITS OF THE STUDY. ELECTRONICALLY SIGNED BY: Cris Baeza DO Normal Not Available Chlamydia/GC by PCR Brandi Sw abon 05-09-2023 Chlamydia Dna(Pcr) Not detected [facility] Gonorrhoeae Dna(Pcr) Not detected [facility] Glucose tolerance, 1 houron 05-09-2023 Glucose Tolerance Test 1 Hour 206 [facility] CBC without diffon Hematocrit (Bld) [Volume fraction] 35.3 % [facility] Hemoglobin (Bld) [Mass/Vol] 11.5 g/dL [facility] Platelets (Bld) [#/Vol] 286 10*3/uL [facility] HIV 1&2 AB/AG Screen (P24 AG )on 01-11-2023 HIV 1&2 AB/AG Non-Reactive [facility] Hepatitis B surface antigeno n 01-11-2023 Hepatitis B Surface Antigen Non-Reactive [facility] Hepatitis C(HCV) Ab w/ Refle x to PCRon 01-11-2023 HCV Ab Ql (S) Non-Reactive [facility] No Panel InformationOrdered By: Elissa Pham on 01-11-2023 [facility] Rubella IGG immune statuson 01-11-2023 Rubella immune IgG 2.64 [facility] Syphilis Total(Unknown Syphi lis Status)Ordered By: Elissa Pham on 01-11-2023 Syphilis Non-Reactive [facility] Type and screenon 01-11-2023 Abo/Rh(D) Positive [facility] Comprehensive Metabolic Pane chandrika 11-09-2021 Albumin [Mass/Vol] 4.4 g/dL Normal 3.6-5.1 Santos [facility] [employer] Comment on above: Performed By: #### L IPD, CMP #### [facility] [address] [place], [place] [id number] Albumin/Globulin [Mass ratio] 1.6 {ratio} Normal 1.0-2.5 [facility] [employer] Comment on above: Performed By: #### L IPD, CMP #### [facility] [address] [place], [place] [id number] ALP [Catalytic activity/Vol] 115 U/L Normal 35-119 [facility] [employer] Comment on above: Performed By: #### L IPD, CMP #### [facility] [address] [facility] [place] [id number] ALT [Catalytic activity/Vol] 31 U/L Normal 6-33 [facility] Comment on above: Result Comment: 05/06 Female reference range changed. Performed By: #### L IPD, CMP #### [facility] [address] [facility] [address] [facility] [place] [id number] Anion gap [Moles/Vol] 16 mmol/L Normal 12-20 [facility] Comment on above: Result Comment: Effe ctive 06/11/2019 reference range changed. Performed By: #### L IPD, CMP #### [facility] [address] [facility] [place] [id number] AST [Catalytic activity/Vol] 21 U/L Normal 9-34 [facility] Comment on above: Performed By: #### L IPD, CMP #### [facility] [address] [facility] [place] [id number] Bilirubin [Mass/Vol] 0.31 mg/dL Normal 0.30-1.20 [facility] Comment on above: Performed By: #### L IPD, CMP #### [facility] [address] [facility] [id number] BUN/CREA 19 Ratio Normal 6-22 [facility] Comment on above: Performed By: #### L IPD, CMP #### [facility] [address] [place], [place] [id number] Calcium [Mass/Vol] 9.5 mg/dL Normal 8.6-10.2 [facility] Comment on above: Performed By: #### L IPD, CMP #### [facility] [address] [facility] [place] [id number] Chloride [Moles/Vol] 101 mmol/L Normal 98-107 [facility] Comment on above: Performed By: #### L IPD, CMP #### [facility] [address] [facility] [place] [id number] CO2 [Moles/Vol] 25 mmol/L Normal 20-31 [facility] Comment on above: Performed By: #### L IPD, CMP #### [facility] [address] [facility] [id number] Creatinine [Mass/Vol] 0.6 mg/dL Normal 0.6-1.4 [facility] [employer] Comment on above: Performed By: #### L IPD, CMP #### [facility] [address] [place], [place] [id number] eGFRAA 156 mL/min/1.73m2 Normal >60 [facility] [employer] Comment on above: Performed By: #### L IPD, CMP #### [facility] [address] [place], [place] [id number] eGFRNAA 129 mL/min/1.73m2 Normal >60 [facility] [employer] Comment on above: Performed By: #### L IPD, CMP #### [facility] [address] [place], [place] [id number] Globulin (S) [Mass/Vol] 2.8 g/dL Normal 1.9-3.7 N [facility] [employer] Comment on above: Performed By: #### L IPD, CMP #### [facility] [address] [place], [place] [id number] Glucose [Mass/Vol] 107 mg/dL High 65-99 [place] [employer] Comment on above: Result Comment: For FASTING Glucose --- ADA reference ranges: Normal 65-99 mg/dl Prediabetes 100-125 Diabetes >/= 126 Performed By: #### L IPD, CMP #### [facility] [address] [place], [place] [id number] Potassium [Moles/Vol] 4.3 mmol/L Normal 3.5-5.5 [facility] [employer] Comment on above: Performed By: #### L IPD, CMP #### [facility] [address] [place], [place] [id number] Protein [Mass/Vol] 7.2 g/dL Normal 6.1-8.1 [place] [employer] Comment on above: Performed By: #### L IPD, CMP #### [facility] [address] [place], [place] [id number] Sodium [Moles/Vol] 137 mmol/L Normal 135-146 [place] [employer] Comment on above: Performed By: #### L IPD, CMP #### [facility] [address] [place], [place] [id number] Urea nitrogen [Mass/Vol] 11 mg/dL Normal 7-25 [facility] Comment on above: Performed By: #### L IPD, CMP #### [facility] [address] [place], [place] [id number] Lipid Panelon 11-09-2021 Cholesterol [Mass/Vol] 233 mg/dL High 125-200 [facility] Comment on above: Result Comment: Low risk < 200mg/dL Borderline risk 201-239 mg/dl High risk > or equal to 240 Performed By: #### L IPD, CMP #### [facility] [address] [place], [place] [id number] Cholesterol in HDL [Mass/Vol] 52 mg/dL Normal >40 [facility] Comment on above: Result Comment: High Cardiovascular Risk HDL <40 mg/dL Low Cardiovascular Risk HDL > or equal to 60 mg/dl Performed By: #### L IPD, CMP #### [facility] [address] [place], [place] [id number] Cholesterol in LDL [Mass/Vol] 162 mg/dL Normal [facility] Comment on above: Result Comment: LDL ATP III CLASSIFICATION LDL less than 100 mg/dl Optimal LDL 100-129 mg/dl Near or above optimal LDL 130-159 Borderline high LDL 160-189 High LDL greater than 189 mg/dl Very High Performed By: #### L IPD, CMP #### [facility] [address] [place], [place] [id number] Cholesterol in VLDL [Mass/Vol] 19 mg/dL Normal [facility] Comment on above: Performed By: #### L IPD, CMP #### [facility] [address] [place], [place] [id number] Cholesterol.total/Asiya sterol in HDL [Mass ratio] 4 {ratio} Normal [facility] Comment on above: Performed By: #### L IPD, CMP #### [facility] [address] [place], [place] [id number] Triglyceride [Mass/Vol] 94 mg/dL Normal 30-150 N [facility] Comment on above: Result Comment: TRIG ATPIII CLASSIFICATIONS TRIG less than 150 mg/dl Normal TRIG 150-199 mg/dl Borderline High TRIG 200-500 mg/dl High TRIG greather than 500 mg/dl Very High Performed By: #### L IPD, CMP #### [facility] [address] [place], [place] [id number] US Gallbladderon 08-21-2021 US Gallbladder FINDINGS: The liver is somewhat homogeneous, appearance suggestive of diffuse fatty infiltration, with focal sparing of the gallbladder fossa. No focal mass lesions or biliary dilatation, however, is identified. The gallbladder and biliary tree are unremarkable. No gallstones, pericholecystic fluid or gallbladder wall thickening is identified. The biliary tree is non-dilated. The common bile duct measures 3 mm in greatest dimension. The pancreas and right kidney are grossly unremarkable. No ascites is seen. IMPRESSION: 1. Diffuse fatty infiltration of the liver 2. Normal gallbladder and biliary tree appearance Report reported and signed by Binh Mares on 08/21/2021 1258 Normal [facility] Amylaseon 08-20-2021 CHUCK 20 U/L Low 28-100 [facility] Comment on above: Performed By: #### A MY, LIP #### [facility] [address] [place], [place] [id number] Lipaseon 08-20-2021 LIP2 22 IU/L Normal 13-60 [facility] Comment on above: Performed By: #### A MY, LIP #### [facility] [address] [place], [place] [id number] Complete Blood Count with Au to Diffon 08-10-2021 Basophils (Bld) [#/Vol] 0.02 10*3/uL Normal 0.00-0.20 [facility] Comment on above: Performed By: #### C MP, TSH reflex FT4, CBCAD #### [facility] [address] [place], [place] [id number] Basophils/100 WBC (Bld) 0.2 % Normal [facility] Comment on above: Performed By: #### C MP, TSH reflex FT4, CBCAD #### [facility] [address] [place], [place] [id number] Eosinophils (Bld) [#/Vol] 0.11 10*3/uL Normal 0.02-0.50 [facility] Comment on above: Performed By: #### C MP, TSH reflex FT4, CBCAD #### [facility] [address] [place], [place] [id number] Eosinophils/100 WBC (Bld) 1.2 % Normal [facility] Comment on above: Performed By: #### C MP, TSH reflex FT4, CBCAD #### [facility] [address] [place], [place] [id number] Erythrocyte distribution width (RBC) [Ratio] 14.0 % Normal 11.0-15.0 [facility] Comment on above: Performed By: #### C MP, TSH reflex FT4, CBCAD #### [facility] [address] [place], [place] [id number] Hematocrit (Bld) [Volume fraction] 39.5 % Normal 35.0-47.0 [facility] Comment on above: Performed By: #### C MP, TSH reflex FT4, CBCAD #### [facility] [address] [place], [place] [id number] Hemoglobin (Bld) [Mass/Vol] 12.3 g/dL Normal 11.6-15.5 [facility] Comment on above: Performed By: #### C MP, TSH reflex FT4, CBCAD #### [facility] [address] [place], [place] [id number] Lymphocytes (Bld) [#/Vol] 2.3 10*3/uL Normal 0.9-3.9 [facility] Comment on above: Performed By: #### C MP, TSH reflex FT4, CBCAD #### [facility] [address] [place], [place] [id number] Lymphocytes/100 WBC (Bld) 25.5 % Normal [facility] Comment on above: Performed By: #### C MP, TSH reflex FT4, CBCAD #### [facility] [address] [place], [place] [id number] MCH (RBC) [Entitic mass] 25.4 pg Low 27.0-33.0 [facility] Comment on above: Performed By: #### C MP, TSH reflex FT4, CBCAD #### [facility] [address] [place], [place] [id number] MCHC (RBC) [Mass/Vol] 31.1 g/dL Low 32.0-36.0 [facility] Comment on above: Performed By: #### C MP, TSH reflex FT4, CBCAD #### [facility] [address] [place], [place] [id number] MCV (RBC) [Entitic vol] 81 fL Normal 80-100 [facility] Comment on above: Performed By: #### C MP, TSH reflex FT4, CBCAD #### [facility] [address] [place], [place] [id number] Monocytes (Bld) [#/Vol] 0.7 10*3/uL Normal 0.2-0.9 [facility] Comment on above: Performed By: #### C MP, TSH reflex FT4, CBCAD #### [facility] [address] [place], [place] [id number] Monocytes/100 WBC (Bld) 7.3 % Normal [facility] Comment on above: Performed By: #### C MP, TSH reflex FT4, CBCAD #### [facility] [address] [place], [place] [id number] Neutrophils (Bld) [#/Vol] 5.8 10*3/uL Normal 1.5-7.8 [facility] Comment on above: Performed By: #### C MP, TSH reflex FT4, CBCAD #### [facility] [address] [place], [place] [id number] Neutrophils/100 WBC (Bld) 65.4 % Normal [facility] Comment on above: Performed By: #### C MP, TSH reflex FT4, CBCAD #### [facility] [address] [place], [place] [id number] Platelet mean volume (Bld) [Entitic vol] 8.80 fL Normal 7.50-12.50 [facility] Comment on above: Performed By: #### C MP, TSH reflex FT4, CBCAD #### [facility] [address] [place], [place] [id number] Platelets (Bld) [#/Vol] 353 10*3/uL Normal 140-400 [facility] Comment on above: Performed By: #### C MP, TSH reflex FT4, CBCAD #### [facility] [address] [place], [place] [id number] RBC (Bld) [#/Vol] 4.85 10*6/uL Normal 3.90-5.20 [facility] Comment on above: Performed By: #### C MP, TSH reflex FT4, CBCAD #### [facility] [address] [place], [place] [id number] RDW-SD 40.8 fL Normal 37.0-50.0 [facility] Comment on above: Performed By: #### C MP, TSH reflex FT4, CBCAD #### [facility] [address] [place], [place] [id number] WBC (Bld) [#/Vol] 8.9 10*3/uL Normal 3.8-11.0 [facility] [employer] Comment on above: Performed By: #### C MP, TSH reflex FT4, CBCAD #### [facility] [address] [place], [place] [id number] Comprehensive Metabolic Pane [facility] 08-10-2021 Albumin [Mass/Vol] 4.4 g/dL Normal 3.6-5.1 [facility] [employer] Comment on above: Performed By: #### C MP, TSH reflex FT4, CBCAD #### [facility] [address] [place], [place] [id number] Albumin/Globulin [Mass ratio] 1.6 {ratio} Normal 1.0-2.5 [facility] [employer] Comment on above: Performed By: #### C MP, TSH reflex FT4, CBCAD #### [facility] [address] [place], [place] [id number] ALP [Catalytic activity/Vol] 122 U/L High 35-119 [facility] [employer] Comment on above: Performed By: #### C MP, TSH reflex FT4, CBCAD #### [facility] [address] [place], [place] [id number] ALT [Catalytic activity/Vol] 33 U/L Normal 6-33 [facility] [employer] Comment on above: Result Comment: 05/06 Female reference range changed. Performed By: #### C MP, TSH reflex FT4, CBCAD #### [facility] [address] [place], [place] [id number] Anion gap [Moles/Vol] 16 mmol/L Normal 12-20 [facility] Comment on above: Result Comment: Effdru ctive 06/11/2019 reference range changed. Performed By: #### C MP, TSH reflex FT4, CBCAD #### [facility] [address] [place], [place] [id number] AST [Catalytic activity/Vol] 23 U/L Normal 9-34 [facility] Comment on above: Performed By: #### C MP, TSH reflex FT4, CBCAD #### [facility] [address] [place], [place] [id number] BUN/CREA 21 Ratio Normal 6-22 [facility] Comment on above: Performed By: #### C MP, TSH reflex FT4, CBCAD #### [facility] [address] [place], [place] [id number] Calcium [Mass/Vol] 9.5 mg/dL Normal 8.6-10.2 [facility] Comment on above: Performed By: #### C MP, TSH reflex FT4, CBCAD #### [facility] [address] [place], [place] [id number] Chloride [Moles/Vol] 104 mmol/L Normal 98-107 [facility] Comment on above: Performed By: #### C MP, TSH reflex FT4, CBCAD #### [facility] [address] [place], [place] [id number] CO2 [Moles/Vol] 23 mmol/L Normal 20-31 [facility] Comment on above: Performed By: #### C MP, TSH reflex FT4, CBCAD #### [facility] [address] [place], [place] [id number] Creatinine [Mass/Vol] 0.5 mg/dL Low 0.6-1.4 [facility] Comment on above: Performed By: #### C MP, TSH reflex FT4, CBCAD #### [facility] [address] [place], [place] [id number] eGFRAA 191 mL/min/1.73m2 Normal >60 [place] [employer] Comment on above: Performed By: #### C MP, TSH reflex FT4, CBCAD #### [facility] [address] [place], [place] [id number] eGFRNAA 158 mL/min/1.73m2 Normal >60 [facility] Specialist Comment on above: Performed By: #### C MP, TSH reflex FT4, CBCAD #### [facility] [address] [place], [place] [id number] Globulin (S) [Mass/Vol] 2.7 g/dL Normal 1.9-3.7 [facility] Comment on above: Performed By: #### C MP, TSH reflex FT4, CBCAD #### [facility] [address] [place], [place] [id number] Glucose [Mass/Vol] 100 mg/dL High 65-99 [facility] Comment on above: Result Comment: For FASTING Glucose --- ADA reference ranges: Normal 65-99 mg/dl Prediabetes 100-125 Diabetes >/= 126 Performed By: #### C MP, TSH reflex FT4, CBCAD #### [facility] [address] [place], [place] [id number] Potassium [Moles/Vol] 4.5 mmol/L Normal 3.5-5.5 [facility] Comment on above: Performed By: #### C MP, TSH reflex FT4, CBCAD #### [facility] [address] [place], [place] [id number] Protein [Mass/Vol] 7.1 g/dL Normal 6.1-8.1 [facility] [place] [employer] Comment on above: Performed By: #### C MP, TSH reflex FT4, CBCAD #### [facility] [address] [place], [place] [id number] Sodium [Moles/Vol] 138 mmol/L Normal 135-[facility] [employer] Comment on above: Performed By: #### C MP, TSH reflex FT4, CBCAD #### [facility] [address] [place], [place] [id number] TBIL <0.3 Normal [facility] Comment on above: Performed By: #### C MP, TSH reflex FT4, CBCAD #### [facility] [address] [place], [place] [id number] Urea nitrogen [Mass/Vol] 10 mg/dL Normal 7-25 [facility] [employer] Comment on above: Performed By: #### C MP, TSH reflex FT4, CBCAD #### [facility] [address] [place], [place] [id number] TSH w/ Reflex to Free T4on 0 08-10-2021 TSH 2.060 uIU/mL Normal 0.400-4.500 [facility] [employer] Comment on above: Performed By: #### C MP, TSH reflex FT4, CBCAD #### [facility] [address] [place], [place] [id number] Cytologyon 08-28-2020 Cytology (NOTE) INTERPRETATION Cervical material, (ThinPrep vial, Imaging-assisted review): Specimen Adequacy: Satisfactory for evaluation. - Endocervical/transfo rmation zone component present. Descriptive Diagnosis: Negative for intraepithelial lesion or malignancy. Chemical Radiation Technician: WENDY William(ASCP) Electronically Signed Out seth/09/04/2020 Source: 1: Cervical material, (ThinPrep vial, Imaging-assisted review) Clinical History Oral Contraceptives Z12.4 Encounter for screening for malignant neoplasm of cervix LMP: 08/18/2020 GYNECOLOGIC CYTOLOGY REPORT Patient Name: ANA SCOTT [facility] Rec: [id number] Path Number: [id number] [facility] ANATOMIC PATHOLOGY [address] [place] [id number] [facility] Comment on above: Performed By: #### P PPVP #### [facility] [address] [place] [id number] Tool Coordinator: Morgan Cano MD Vital Signs Date Time Vital Sign Value Performing Clinician Madison becerra 07-19-2023 08:28-0500 Body mass index (BMI) [Ratio] 44.22 kg/m2 [facility] 07-19-2023 08:28-0500 Body weight 124.29 kg Rita Hinojosa CNM Work Phone: [facility] 07-19-2023 08:28-0500 Diastolic blood pressure 78 mm[Hg] Rita Hinojosa CNM Work Phone: [facility] 07-19-2023 08:28-0500 Systolic blood pressure 118 mm[Hg] Rita Hinojosa CNM Work Phone: [facility] 06-21-2023 11:45-0500 Body height 167.6 cm Cherelle Cosme RN Work Phone: [facility] 06-21-2023 11:45-0500 Body mass index (BMI) [Ratio] 44.39 kg/m2 Cherelle Cosme RN Work Phone: [facility] 06-21-2023 11:45-0500 Body weight 124.74 kg Cherelle Cosme RN Work Phone: [facility] 06-21-2023 11:01-0500 Body height 167.6 cm Isabel Aragon MD Work Phone: [facility] 06-21-2023 11:01-0500 Body mass index (BMI) [Ratio] 44.41 kg/m2 Isabel Aragon MD Work Phone: [facility] 06-21-2023 11:01-0500 Body weight 124.74 kg Isabel Aragon MD Work Phone: [facility] 06-21-2023 11:01-0500 Diastolic blood pressure 61 mm[Hg] Isabel Aragon MD Work Phone: [facility] 06-21-2023 11:01-0500 Heart rate 112 /min Isabel Aragon MD Work Phone: [facility] 06-21-2023 11:01-0500 Systolic blood pressure 120 mm[Hg] Isabel Aragon MD Work Phone: [facility] Encounters Encounter Date Encounter Type Care Provider Facility Start: 07-20-2023 Clinisync Result Encounter Rita Hinojosa CNM Work Phone: [facility] Unsolicited Start: 07-20-2023 Clinisync Result Encounter Rita Villarrealo CNM Work Phone: [facility] Unsolicited Start: 07-19-2023 Bamboo flowsheet Rita L Maurice ro CNM Work Phone: [facility] Start: 07-19-2023 Bamboo flowsheet Rita L Maurice ro CNM Work Phone: [facility] Start: 07-19-2023 Telephone encounter Ann Sherman RN [facility] Start: 07-19-2023 End: 07-20-2023 ambulatory RITA L FLORO Not Available Start: 07-19-2023 End: 07-20-2023 ambulatory RITA L FLORO Not Available Start: 07-19-2023 End: 07-19-2023 Subsequent care visit Rita Villarrealo CNM Work Phone: [facility] Comment on above: Non-reactive NST (no n-stress test) (Primary Dx); NST (non-stress test) nonreactive; Encounter for supervision of normal first , third trimester; Gestational diabetes mellitus (GDM) requiring insulin Start: 07-18-2023 Orders Only Chelsea puckett PA-C Work Phone: [facility] Comment on above: Insulin controlled g estational diabetes mellitus (GDM) during , antepartum Start: 07-15-2023 End: 07-16-2023 ambulatory RITA L FLORO Not Available Start: 07-12-2023 Bamboo flowsheet Rita L Maurice ro CNM Work Phone: [facility] Start: 07-12-2023 Bamboo flowsheet Rita L Maurice ro CNM Work Phone: [facility] Start: 07-12-2023 End: 07-13-2023 Orders Only Derian Bates MD Work Phone: [facility] Comment on above: Insulin controlled g estational diabetes mellitus (GDM) during , antepartum Start: 07-08-2023 End: 07-09-2023 ambulatory RITA L FLORO Not Available Start: 07-05-2023 End: 07-06-2023 ambulatory RITA L FLORO Not Available Start: 07-01-2023 End: 07-02-2023 ambulatory RITA L FLORO Not Available Start: 07-01-2023 End: 07-01-2023 ambulatory DERIAN MARINOURSHID [facility] Start: 07-01-2023 End: 07-01-2023 Office outpatient visit 15 minutes Derian Bates MD Work Phone: [facility] Comment on above: Diet controlled gest ational diabetes mellitus (GDM) in third trimester (Primary Dx); Insulin controlled gestational diabetes mellitus (GDM) during , antepartum Start: 06-29-2023 End: 06-29-2023 ambulatory [facility] Bernice [facility] Start: 06-28-2023 End: 06-29-2023 ambulatory RITA L FLORO Not Available Start: 06-27-2023 End: 06-27-2023 ambulatory [place] Not Available Start: 06-24-2023 End: 06-25-2023 ambulatory RITA L FLORO Not Available Start: 06-24-2023 Telephone encounter Roselia Meyer [facility] Start: 06-23-2023 Orders Only Ashanti Redmond rnal- Medicine at [facility] Comment on above: Insulin controlled g estational diabetes mellitus (GDM) during , antepartum (Primary Dx) Start: 06-21-2023 End: 06-21-2023 Office consultation new/estab patient 60 min Isabel Aragon MD Work Phone: [facility] Comment on above: Insulin controlled g estational diabetes mellitus (GDM) during , antepartum (Primary Dx); 34 weeks gestation of ; Severe obesity due to excess calories affecting , antepartum ([facility]); Bipolar affective disorder in remission ([facility]); Postural orthostatic tachycardia syndrome (POTS) Start: 06-21-2023 End: 06-21-2023 ambulatory CHERELLE COSME [facility] Start: 06-21-2023 End: 06-22-2023 ambulatory Cherelle Cosme RN Work Phone: [facility] [place] Comment on above: Gestational diabetes mellitus (GDM) in third trimester, gestational diabetes method of control unspecified Start: 06-17-2023 End: 06-18-2023 ambulatory RITA L FLORO Not Available Start: 06-15-2023 Chart abstracting Isabel Aragon MD Work Phone: Maternal- Medicine at [facility] [place] Start: 06-14-2023 End: 06-15-2023 ambulatory RITA L FLORO Not Available Start: 06-10-2023 End: 06-11-2023 ambulatory RITA L FLORO Not Available Start: 06-08-2023 End: 06-08-2023 ambulatory MENA SILVERSaniaAUGIE Not Available Start: 06-07-2023 End: 06-08-2023 ambulatory RITA L FLORO Not Available Start: 06-01-2023 End: 06-01-2023 ambulatory MORENA HORN Not Available Start: 05-23-2023 End: 05-24-2023 ambulatory RITA L FLORO Not Available Start: 05-10-2023 End: 05-10-2023 ambulatory MORENA HORN Not Available Start: 05-09-2023 End: 05-10-2023 ambulatory RITA L FLORO Not Available Start: 08-28-2020 End: 08-29-2020 Patient encounter procedure OLIVIER ROSALES [facility] Start: 08-28-2020 End: 08-28-2020 Subsequent hospital visit by physician Martita RODRIGUEZ Laboratory Comment on above: Screening for cervic al cancer Start: 08-21-2018 End: 08-22-2018 Patient encounter procedure SAGRARIO MARKER Facility:H1 Procedures Date Procedure Procedure Detail Performing Clinician Start: 07-20-2023 HP CBC WITH PLATEL ET NO DIFFERENTIAL Rita L Floro CNM Work Phone: Start: 06-21-[address] [facility] MEDICINE - DIABETES EDUCATION Rita Hinojosa ROLLWAY WORKER-CN Work Phone: Start: 06-21-2023 AMB REFERRAL TO [facility]ICINE - NUTRITION EDUCATION Rita Hinojosa [employer]LLW[employer] WORKER-CN Work Phone: Start: 05-09-2023 CHLAMYDIA/GC BY PCR BRANDI SWAB Not In System Ref Prov Start: 05-09-[address] gtt 3 specimens Not In System Ref Prov Start: 01-28-2023 Adult depression scr eening assessment Isabel Aragon MD Work Phone: Start: 01-11-2023 Antibody screen Isabel fuentes MD Work Phone: Start: 01-11-2023 Blood count complete automated Not In System Ref Prov Start: 01-11-2023 Hepatitis c antibody No t In System Ref Prov Start: 01-11-2023 HIV 1&2 AB/AG SCREEN (P24 AG) Not In System Ref Prov Start: 01-11-2023 Iaad ia hepatitis b surface antigen Not In System Ref Prov Start: 01-11-2023 TYPE AND SCREEN Not In System Ref Prov Start: 08-28-2020 Microscopic observat ion [Identifier] in Cervix by Cyto stain Isabel Aragon MD Work Phone: Plan of Treatment Date Care Activity Detail Author Start: 05-10-2033 DTaP,Tdap and Td Vaccines (3 - Td or Tdap) DTaP,Tdap and Td Vaccines (3 - Td or Tdap) [facility] Start: 12-27-2026 DTaP/Tdap/Td vaccine (2 - Td) DTaP/Tdap/Td vaccine (2 - Td) [employer] Work Phone: Start: 06-23-2024 End: 06-23-2024 US MFM with or without consult US MFM with or without consult Imaging Routine Insulin controlled gestational diabetes mellitus (GDM) during , antepartum Expected: 06/23/2024 (Approximate), Expires: 06/23/2024 [facility] Work Phone: Comment on above: Expected: 06/23/2024 (Approximate), Expires: 06/23/2024 Start: 06-21-2024 Adult BMI Screening Adult BMI Screen ing [facility] Start: 06-21-2024 Tobacco Screening Tobacco Screening [facility] Start: 05-27-2024 Adult BMI Screening Adult BMI Screen ing [facility] Start: 05-27-2024 Tobacco Screening Tobacco Screening [facility] Start: 05-09-2024 Screening for Chlamy tarun trachomatis Chlamydia Screening [facility] Start: 01-29-2024 Adult BMI Follow Up Plan Adult BMI Follow Up Plan [facility] Start: 01-29-2024 Depression Screening Depression Scre ening [facility] Start: 12-23-2023 End: 12-23-2023 Patient encounter procedure 12/23/2023 2:30 PM EDT Office Visit [facility] [address] [place] [phone] Sara Oreilly MD [address] [place] [address], [address] [place] [phone] [facility] Start: 12-02-2023 End: 12-02-2023 Patient encounter procedure 12/02/2023 1:00 PM EDT Office Visit [facility] [address] [facility] [place] [phone] Sara Oreilly MD [address] [place] [address], [address] [place] [phone] [facility] Start: 08-29-2023 Screening for malign ant neoplasm of cervix Pap Smear [facility] Start: 07-28-2023 End: 07-28-2023 Patient encounter procedure 07/28/2023 1:00 PM EST Office Visit [facility] [address] [place] [facility] [place] [phone] [place] NP [address] [place], [place] [phone] [facility] Start: 07-19-2023 End: 07-19-2024 US biophysical profile wo non stress testing [facility] Work Phone: Comment on above: Expected: 07/19/2023 , Expires: 07/19/2024 Start: 07-19-2023 End: 07-19-2023 Patient encounter procedure [facility] Comment on above: Arrived Start: 07-15-2023 End: 07-15-2023 Professional / ancillary services management 07/15/2023 4:15 PM EST Ancillary Procedure [facility] [address] [phone] [facility] Start: 07-12-2023 End: 07-12-2023 Patient encounter procedure 07/12/2023 8:30 AM EST Routine [facility] [address] [place] [address] Rita Hinojosa, CNM [address] [place] [address] Arrived [facility] Comment on above: Arrived Start: 07-01-2023 End: 07-01-2023 Telemedicine consultation with patient 07/01/2023 1:00 PM EST Telemedicine Maternal- Medicine at [facility] [place] [address] [place] [address] Derian Bates MD [address] [place] [address] [facility] at [facility] [place] Start: 06-29-2023 End: 06-29-2023 Patient encounter procedure 06/29/2023 8:00 AM EST Appointment [facility] [place] [address] [place] [address] [facility] [place] Start: 06-21-2023 End: 06-21-2023 Patient encounter procedure 06/21/2023 1:30 PM EST Office Visit [facility] at [facility] [place] [address] [place] [phone] Isabel Aragon MD [address] [place] [address] [facility] at [facility] [place] Start: 06-21-2023 End: 06-21-2023 ambulatory 06/21/2023 10:30 AM EST Support Visit [facility]- Medicine at [facility] [place] [address] [place] [phone] Cherelle Cosme RN [address], [address] [place] [address] Roselia Cabrera LD [facility] [place] Start: 02-04-2023 COVID-19 Vaccine ( season) COVID-19 Vaccine ( season) [facility] Start: 09-02-2021 End: 09-02-2021 Office Visit 09/02/2021 Office Visit Obstetrics and Gynecology Olivier Yates, THOR - LEIAM [address] [place] [address] [facility] Start: 09-04-2019 Screening for malign ant neoplasm of cervix Cervical cancer screen [facility] [employer] Phone: Start: 2014 COVID-19 Vaccine (1) COVID-19 Vaccin e (1) [facility] [employer] Phone: Start: 2014 Screening for Chlamy tarun trachomatis Chlamydia screen [facility] [employer] Phone: Start: 2013 HIV screening HIV screen [facility] Work Phone: Start: 2009 HPV vaccine (1 - 2-d ose series) HPV vaccine (1 - 2-dose series) [employer] Phone: Start: 09-04-1999 Varicella vaccine (1 of 2 - 2-dose childhood series) Varicella vaccine (1 of 2 - 2-dose childhood series) [facility]: Start: 1998 Hepatitis C screening Hepatitis C sc reen [facility] [employer] Work Phone: End: 08-28-2020 Cytopathology procedure, preparation of smear, genital source PAP SMEAR Lab Routine Screening for cervical cancer 1 Occurrences starting 08/28/2020 until 08/28/2020 [facility]: Comment on above: 1 Occurrences starti ng 08/28/2020 until 08/28/2020 Immunizations Immunization Date Immunization Notes Care Provider Fa cility 06-10-2023 ABRYSVO - Respirator y syncytial virus (RSV), vaccine, bivalent, protein subunit RSV prefusion F, diluent reconstituted, 0.5 mL, PF Rita Floro [facility] Work Phone: [facility] 05-10-2023 tetanus toxoid, redu yash diphtheria toxoid, and acellular pertussis vaccine, adsorbed Rita Floro [facility] Work Phone: [facility] 03-14-2023 influenza, injectabl e, quadrivalent, preservative free Rita Floro CN Work Phone: [facility] 03-04-2022 influenza, injectabl e, quadrivalent, preservative free Rita Floro CN Work Phone: [facility] 03-01-2021 Seasonal, quadrivale nt, recombinant, injectable influenza vaccine, preservative free Rita Floro CN Work Phone: [facility] 03-12-2019 influenza virus vaccine, unspecified formulation Martita Phil [facility] Work Phone: 03-12-2019 Influenza, injectabl e, Madin Jackson Canine Kidney, preservative free, quadrivalent Rita Floro [facility] Work Phone: [facility] 03-22-2018 influenza, injectabl e, quadrivalent, preservative free Rita Hinojosa [facility] Work Phone: [facility] 12-27-2016 tetanus toxoid, redu yash diphtheria toxoid, and acellular pertussis vaccine, adsorbed [facility] Work Phone: 2014 meningococcal ACWY vaccine, unspecified formulation [facility] Work Phone: Payers Date Payer Category Payer Unknown [id number] 2022 Unknown [id number] 2021 Unknown [id number] 2020 Private Health Insurance [id number] 2020 Private Health Insurance [id number] 1998 Unknown [id number] 2.16.84 0.1.210804.3.579.2.593 1998 Unknown [id number] 2.16.8 40.1.775195.3.579.2.173 1998 Unknown [id number] 2.16.8 40.1.282563.3.579.2.1286 1998 Unknown [id number] 2.16.8 40.1.870596.3.579.2.1286 1998 Unknown [id number] 2.16.84 0.1.959756.3.579.2.1286 1998 Unknown [id number] 2.16.84 0.1.067328.3.579.2.1286 1998 Unknown [id number] 2.16.84 0.1.166997.3.579.2.1259 1998 Unknown [id number] 2.16.84 0.1.911728.3.579.2.1259 1998 Unknown [id number] 2.16.84 0.1.050536.3.579.2.1258 1998 Unknown [id number] 2.16.84 0.1.225165.3.579.2.1258 1998 Unknown [id number] 2.16.84 0.1.631826.3.579.2.1258 1998 Unknown [id number] 2.16.84 0.1.460272.3.579.2.1258 1998 Unknown [id number] 2.16.84 0.1.919920.3.579.2.1258 1998 Unknown [id number] 2.16.84 0.1.715901.3.579.2.1258 1998 Unknown [id number] 2.16.84 0.1.409660.3.579.2.1258 1998 Unknown [id number] 2.16.84 0.1.116732.3.579.2.1258 1998 Unknown [id number] 2.16.84 0.1.539606.3.579.2.1258 1998 Unknown [id number] 2.16.84 0.1.933186.3.579.2.1258 1998 Unknown [id number] 2.16.84 0.1.253958.3.579.2.1258 1998 Unknown [id number] 2.16.84 0.1.925082.3.579.2.1258 1998 Unknown [id number] 2.16.84 0.1.721644.3.579.2.1258 1998 Unknown [id number] 2.16.840 .1.204383.3.579.2.1258 1998 Unknown [id number] 2.16.840 .1.607853.3.579.2.1258 1998 Unknown [id number] 2.16.840 .1.156048.3.579.2.1259 1998 Unknown [id number] 2.16.840 .1.929731.3.579.2.1259 1998 Unknown [id number] 2.16.840 .1.184554.3.579.2.1259 1998 Unknown [id number] 2.16.840 .1.291415.3.579.2.1259 1959 Unknown [id number] Social History Date Type Detail Facility Start: 08-28-2020 End: 11-05-2022 Tobacco smoking status [facility] Never smoker [facility] Start: 08-28-2020 End: 11-05-2022 Tobacco use and exposure Never used [employer] Phone: Start: 08-28-2020 Alcohol intake Current drinker of alcohol (finding) [employer] Phone: Start: 03-04-2020 Alcohol Comment occasionally [employer] Phone: Start: 1998 Sex Assigned At Female [employer] Phone: Start: 06-15-2023 End: 06-21-2023 Alcohol intake Current non-drinker of alcohol (finding) [facility] [employer] [facility] Start: 09-18-2019 End: 11-05-2022 History of Social function [facility] [employer] [facility] Start: 09-18-2019 End: 11-05-2022 Alcohol Use Disorder Identification Test - Consumption [AUDIT-C] [facility] Frequency of Alcohol Consumption Never [facility] Start: 09-29-2021 Alcohol Comment occ [facility] Start: 11-06-2022 [facility] Start: 04-04-2019 Gender identity Identifies as female gender (finding) [facility] Start: 04-04-2019 Sexual orientation Heterosexual (finding) [facility] Start: 06-27-2023 Alcohol intake Ex-drinker (finding) [facility] Within the last year , have you been afraid of your partner or ex-partner? No [facility] Are you now , , , , never or living with a partner? [facility] How often to you hav e a drink containing alcohol? Monthly or less [facility] How many standard dr inks containing alcohol do you have on a typical day? 1 or 2 [facility] How often do you hav e 6 or more drinks on 1 occasion? Never [facility] How hard is it for y ou to pay for the very basics like food, housing, medical care, and heating Not very hard [facility] Do you feel stress - tense, restless, nervous, or anxious, or unable to sleep at night because your mind is troubled all the time - these days [OSQ] Only a little [facility] (I/We) worried wheth er (my/our) food would run out before (I/we) got money to buy more. Sometimes true [facility] The food that (I/we) bought just didn't last, and (I/we) didn't have money to get more. Never true [facility] Start: 10-28-2022 Alcohol Comment monthly or less; caffeine: 1-2 cups per day [facility] Medical Equipment Procedure Code Equipment Code Equipment Original Text Equipment Identifier Dates by miscellaneous route. USE DIRECTED. [id number] Inject 20U subcutaneously into abdomen every evening, prime with 2U [id number] Start: 06-21-2023 USE 1 STRIP 4 TI MES DAILY [id number] Start: 06-07-2023 Inject 1 Lancet under the skin in the morning and 1 Lancet at noon and 1 Lancet in the evening and 1 Lancet before bedtime. [id number] Start: 06-07-2023 Goals Date Patient Goal Desired Activity /State Personal health goal Clinical Notes 06-21-2023 to 07-19-2023 Telephone Encounter - Ann Sherman RN - 07/19/2023 1:29 PM ESTTelephone Encounter - Ann Sherman RN - 07/19/2023 1:29 PM Lisa Hinojosa CNM - 07/19/2023 8:30 AM ESTPatient Instructions Note Date & Type Note Facility 07-19-2023 Miscellaneous Notes Called pt to discuss her insulin change. [facility] reviewed her blood sugars and would like her to increase her Lantus tonight to 38 units. She will be induced Tuesday she will take 1/2 of that dose the evening before.Pt verbalized understanding. documented in this encounter [facility] 07-19-2023 Telephone encounter Note Called pt to discuss her insulin change. [facility] reviewed her blood sugars and would like her to increase her Lantus tonight to 38 units. She will be induced Tuesday she will take 1/2 of that dose the evening before.Pt verbalized understanding. [facility] 07-19-2023 History of Present illness Narrative Subjective No chief complaint on file. Sabrina Zavaleta is a 22 y.o. at 38w3d with a working estimated date of delivery of 07/30/2023, by Ultrasound who presents for a routine visit. She denies vaginal bleeding, leakage of fluid, decreased movements, or contractions. Her is complicated by: obesity, GDM, insulin dependent Objective Physical Exam weight: 274 lb Expected Total Weight Gain: 11 lb-19 lb Pregravid BMI: 43.92 BP: 118/78 Urine glucose-negative,protein-negative Assessment/Plan Diagnoses and all orders for this visit: Non-reactive NST (non-stress test) NST (non-stress test) nonreactive - US biophysical profile wo non stress testing; Future Encounter for supervision of normal first , third trimester Gestational diabetes mellitus (GDM) requiring insulin Non reactive NST today BPP ordered, BPP is 8/8 today in the office SVE FT-/-3 posterior patient has Belcher score of 4. Discussed w patient, favorable cervix vs unfavorable cervix. PVU and agrees with plan of care to proceed with medical induction due to insuline dependent diabetes and elevated blood sugars Continue vitamin. Labs reviewed. GBS negative Expected mode of delivery Follow up in 2 weeks for post visit. Patient being induced tomorrow for insulin dependent GDM Sees MFAllegra who is managing her insulin and blood sugars. documented in this encounter [facility] 07-01-2023 History of Present illness Narrative REASON FOR TELEMEDICINE VIDEO OFFICE VISIT: Maternal GDM A2 on insulin. HISTORY OF PRESENT ILLNESS: Ana Zavaleta is a pleasant 22 y.o. G 2 P0 010 at 35w6d due on Estimated Date of Delivery: 07/30/23 . has been complicated with Maternal GDM A2 on insulin with elevated fasting blood glucose. Lantus was increased to 27 units at bedtime. Maternal POTS Syndrome which is stable. Currently the patient has no complaints. The patient denies nausea, vomiting, abdominal pain, vaginal bleeding, SOB or chest pain. Patient Active Problem List Diagnosis Migraine without aura, not intractable, without status migrainosus Anxiety Depression Chronic migraine w/o aura w/o status migrainosus, not intractable Diet controlled gestational diabetes mellitus (GDM) in third trimester ALLERGIES: Allergies Allergen Reactions Penicillins Hives CURRENT MEDICATIONS: Current Outpatient Medications: busPIRone (BUSPAR) 15 mg tablet, Take 1 tablet (15 mg total) by mouth in the morning and 1 tablet (15 mg total) before bedtime., Disp: , Rfl: cholecalciferol, vitamin D3, 2,000 units tablet, 1 tablet (2,000 Units total) in the morning., Disp: , Rfl: cyproheptadine (PERIACTIN) 4 mg tablet, Take 1 tablet (4 mg total) by mouth in the morning and at bedtime., Disp: 60 tablet, Rfl: 5 docusate sodium (COLACE) 100 mg capsule, Take 1 capsule (100 mg total) by mouth in the morning and 1 capsule (100 mg total) before bedtime., Disp: , Rfl: ferrous sulfate 325 (65 FE) mg EC tablet, Take 1 tablet (325 mg total) by mouth in the morning and 1 tablet (325 mg total) in the evening. Take with meals., Disp: , Rfl: hydrOXYzine (VISTARIL) 25 mg capsule, Take 1 capsule (25 mg total) by mouth. (Patient not taking: Reported on 06/21/2023), Disp: , Rfl: insulin glargine (LANTUS SOLOSTAR U-100 INSULIN) 100 unit/mL (3 mL) insulin pen, Inject 20U subcutaneously into abdomen every evening, prime with 2U, Disp: 15 mL, Rfl: 0 lamoTRIgine (LaMICtal) 25 mg tablet, Take 1 tablet (25 mg total) by mouth in the morning and 1 tablet (25 mg total) before bedtime., Disp: , Rfl: lancets (TRUEPLUS LANCETS) 28 gauge misc, by miscellaneous route. USE DIRECTED., Disp: , Rfl: loratadine (CLARITIN) 10 mg tablet, 1 tablet (10 mg total) in the morning., Disp: , Rfl: magnesium oxide (MAGOX) 400 mg tablet, Take 1 tablet (400 mg total) by mouth in the morning., Disp: 30 tablet, Rfl: 5 nystatin (MYCOSTATIN) powder, 2 (two) times a day as needed., Disp: , Rfl: omeprazole (PriLOSEC) 40 mg capsule, Take 1 capsule (40 mg total) by mouth every morning before breakfast., Disp: , Rfl: ondansetron (ZOFRAN) 4 mg tablet, TAKE ONE TABLET BY MOUTH EVERY 12 HOURS NEEDED FOR NAUSEA AND VOMITING, Disp: 20 tablet, Rfl: 2 pen needle, diabetic (BD ULTRA-FINE SHORT PEN NEEDLE) 31 gauge x 5/16 needle, Inject 20U subcutaneously into abdomen every evening, prime with 2U, Disp: 100 each, Rfl: 2 no115/iron/folic acid ( 19 ORAL), Take by mouth daily., Disp: , Rfl: riboflavin, vitamin B2, 100 mg tablet, Take 1 tablet (100 mg total) by mouth in the morning., Disp: 30 tablet, Rfl: 5 Past Medical History: Diagnosis Date Anxiety Bipolar 1 disorder ([facility]) Chronic fatigue Chronic migraine w/o aura w/o status migrainosus, not intractable Depression Diabetes mellitus ([facility]) TYPE 2 GERD (gastroesophageal reflux disease) Headache Mixed hyperlipidemia Obesity BMI 44.7 Panic disorder PCOS (polycystic ovarian syndrome) POTS (postural orthostatic tachycardia syndrome) Vertigo REVIEW OF SYSTEMS: Head and Neck: Negative for any dizziness and headaches. Cardiovascular and Respiratory System: Denies any chest pain, shortness of breath, and coughing. Abdominal and System: Denies any abdominal pain, nausea, vomiting, vaginal bleeding, and vaginal discharge RECOMMENDATION: 1. Lantus increased to 27 units at bedtime. 2. Continue testing and growth ultrasounds at her OB office. 3. Delivery at 39 weeks gestation which is already scheduled. Patient can be delivered at her local hospital. 4. Decrease Lantus by 50% the night of induction. Thank you for allowing me to participate in Ana Zavaleta care. If there are any questions, please do not hesitate to call me. Sincerely, DERIAN BATES MD documented in this encounter [facility] 06-24-2023 Miscellaneous Notes Pt sent in food log. Pt generally following the meal plan. Suggested pt may benefit from a starchy bedtime snack. Praised pt for all her efforts. No changes for now. documented in this encounter [facility] 06-24-2023 Telephone encounter Note Pt sent in food log. Pt generally following the meal plan. Suggested pt may benefit from a starchy bedtime snack. Praised pt for all her efforts. No changes for now. [facility] 06-21-2023 History of Present illness Narrative REASON FOR CONSULTATION: GDM noncompliant HISTORY OF PRESENT ILLNESS: Ana Zavaleta is a pleasant 22 y.o. at 34w3d due on Estimated Date of Delivery: 07/30/23. complicated by: GDMA2 vs [id number] Obesity, BMI 45 Postural orthostatic tachycardia syndrome (POTS) Bipolar disorder/ Depression, lamotriginne Chronic migraines PCOS, managed on metformin throughout 1st trimester With regards to diabetes, patient was suspected to have type 2 diabetes, however A1cs have been in the normal range (06/07/23 5.4%). Prior to and throughout the 1st trimester, due to history of PCOS diagnosis, patient was on metformin 500 mg b.i.d.. Glucose challenge test performed on 05/09/2023 was 206. Patient has been tracking logs since 05/23/2023, show persistent fasting hyperglycemia to the 100-110s with intermittent elevated 1 hour postprandials. She has not yet been started on any medical management. Earlier today patient had diabetic education with MFM team. Patient was not scheduled for an M ultrasound. Today, the patient is doing well. She denies headaches, vision changes, nausea, vomiting, right upper quadrant or epigastric pain, SOB or chest pain. She denies contractions, vaginal bleeding, leaking of fluid. She reports good movement. Aneuploidy screening: Declined due to financial reasons Carrier screening: Declined due to financial reasons PAST OBSTETRICAL HISTORY: OB History Para Term AB Living 2 1 SAB IAB Ectopic Multiple Live Births 1 # Outcome Date GA Lbr Jad/2nd Weight Sex Delivery Anes PTL Lv 2 Current 1 SAB 08/19/22 5w0d MEDICAL HISTORY: Past Medical History: Diagnosis Date Anxiety Bipolar 1 disorder ([facility]) Chronic fatigue Chronic migraine w/o aura w/o status migrainosus, not intractable Depression Diabetes mellitus ([facility]) TYPE 2 GERD (gastroesophageal reflux disease) Headache Mixed hyperlipidemia Obesity BMI 44.7 Panic disorder PCOS (polycystic ovarian syndrome) POTS (postural orthostatic tachycardia syndrome) Vertigo SURGICAL HISTORY: Past Surgical History: Procedure Laterality Date APPENDECTOMY WISDOM TOOTH EXTRACTION 06/2020 ALLERGIES: Allergies Allergen Reactions Penicillins Hives CURRENT MEDICATIONS: Current Outpatient Medications: busPIRone (BUSPAR) 15 mg tablet, Take 1 tablet (15 mg total) by mouth in the morning and 1 tablet (15 mg total) before bedtime., Disp: , Rfl: cholecalciferol, vitamin D3, 2,000 units tablet, 1 tablet (2,000 Units total) in the morning., Disp: , Rfl: cyproheptadine (PERIACTIN) 4 mg tablet, Take 1 tablet (4 mg total) by mouth in the morning and at bedtime., Disp: 60 tablet, Rfl: 5 docusate sodium (COLACE) 100 mg capsule, Take 1 capsule (100 mg total) by mouth in the morning and 1 capsule (100 mg total) before bedtime., Disp: , Rfl: ferrous sulfate 325 (65 FE) mg EC tablet, Take 1 tablet (325 mg total) by mouth in the morning and 1 tablet (325 mg total) in the evening. Take with meals., Disp: , Rfl: lamoTRIgine (LaMICtal) 25 mg tablet, Take 1 tablet (25 mg total) by mouth in the morning and 1 tablet (25 mg total) before bedtime., Disp: , Rfl: lancets (TRUEPLUS LANCETS) 28 gauge [facility] [place], by miscellaneous route. USE DIRECTED., Disp: , Rfl: loratadine (CLARITIN) 10 mg tablet, 1 tablet (10 mg total) in the morning., Disp: , Rfl: magnesium oxide (MAGOX) 400 mg tablet, Take 1 tablet (400 mg total) by mouth in the morning., Disp: 30 tablet, Rfl: 5 nystatin (MYCOSTATIN) powder, 2 (two) times a day as needed., Disp: , Rfl: omeprazole (PriLOSEC) 40 mg capsule, Take 1 capsule (40 mg total) by mouth every morning before breakfast., Disp: , Rfl: ondansetron (ZOFRAN) 4 mg tablet, TAKE ONE TABLET BY MOUTH EVERY 12 HOURS NEEDED FOR NAUSEA AND VOMITING, Disp: 20 tablet, Rfl: 2 no115/iron/folic acid ( 19 ORAL), Take by mouth daily., Disp: , Rfl: riboflavin, vitamin B2, 100 mg tablet, Take 1 tablet (100 mg total) by mouth in the morning., Disp: 30 tablet, Rfl: 5 hydrOXYzine (VISTARIL) 25 mg capsule, Take 1 capsule (25 mg total) by mouth. (Patient not taking: Reported on 06/21/2023), Disp: , Rfl: insulin glargine (LANTUS SOLOSTAR U-100 INSULIN) 100 unit/mL (3 mL) insulin pen, Inject 20U subcutaneously into abdomen every evening, prime with 2U, Disp: 15 mL, Rfl: 0 pen needle, diabetic (BD ULTRA-FINE SHORT PEN NEEDLE) 31 gauge x 5/16 needle, Inject 20U subcutaneously into abdomen every evening, prime with 2U, Disp: 100 each, Rfl: 2 REVIEW OF SYSTEMS: Head and Neck: Negative for any dizziness and headaches. Cardiovascular and Respiratory System: Denies any chest pain, shortness of breath, and coughing. Abdominal and System: Denies any abdominal pain, nausea, vomiting, vaginal bleeding, and vaginal discharge FAMILY/GENETIC HISTORY: No family history of VTE, cardiac defects and mental retardation . SOCIAL HISTORY:Patient denies tobacco use, alcohol use, or drug use. RECENT HOSPITALIZATION: REVIEW OF TESTS AND ULTRASOUND REPORTS: Referral records and [facility] chart were reviewed Pertinent Ultrasound findings are see formal ultrasound report. Abstract on 06/15/2023 Component Date Value Ref Range Status Syphilis 01/11/2023 NONREACTIVE Final Rubella immune IgG 01/11/2023 2.64 Final Abo/Rh(D) 01/11/2023 O Positive Final Antibody Screen 01/11/2023 NEGATIVE Final Chlamydia Dna(Pcr) 05/09/2023 NOT DETECTED Final Gonorrhoeae Dna(Pcr) 05/09/2023 NOT DETECTED Final HIV 1&2 AB/AG 01/11/2023 NONREACTIVE Final Hemoglobin 01/11/2023 11.5 Final Hematocrit 01/11/2023 35.3 Final Platelets 01/11/2023 286 Final Glucose Tolerance Test 1 Hour 05/09/2023 206 Final Hepatitis C Antibody 01/11/2023 NONREACTIVE Final Hepatitis B Surface Antigen 01/11/2023 NON REACTIVE Final HABITS: Patient activity no restrictions, diet no restrictions PHYSICAL EXAMINATION: BP 120/61 Pulse 112 Ht 167.6 cm (5' 5.98 ) Wt 124.7 kg (275 lb) LMP 10/15/2022 BMI 44.41 kg/m Well-appearing in no distress. Respirations not labored, speaking comfortably in full sentences Gravid abdomen OVERALL ASSESSMENT -Anajazmin Zavaleta is a pleasant 22 y.o. at 34w3d -GDMA2 vs [id number] -Obesity, BMI 45 -Postural orthostatic tachycardia syndrome (POTS) -Bipolar disorder/ Depression, lamotriginne -Chronic migraines -PCOS, managed on metformin throughout 1st trimester COUNSELING GDMA2 vs Type2 DM Patient was suspected to have type 2 diabetes, however A1cs have been in the normal range (06/07/23 5.4%). Prior to and throughout the 1st trimester, due to history of PCOS diagnosis, patient was on metformin 500 mg b.i.d.. I suspect that diagnosis of type 2 diabetes was based on prior metformin use. Glucose challenge test performed on 05/09/2023 was 206. Patient has been tracking logs since 05/23/2023, show persistent fasting hyperglycemia to the 100-110s with intermittent elevated 1 hour postprandials. She has not yet been started on any medical management. Earlier today patient had diabetic education with MFM team. Patient was not scheduled for an MFM ultrasound. Today, we discussed that gestational diabetes is a is a state of carbohydrate intolerance with subsequently insulin resistance and hyperglycemia. This is a malfunction or dysfunction of glucose sensors in the liver with inappropriate release of glucose followed by hyperinsulinemia followed by normal insulin secretion and then relatively deficiency in insulin secretion resulting in both hyperglycemia and associated hypertriglyceridemia. This along with placental hormones such as human placental lactogen and TNF alpha cause hyperglycemia. The patient eventually develops insulin resistance and hyperglycemia, thus the patient's insulin is not sufficient to achieve a normal glycemic state. I informed the patient that maternal hyperglycemia results in hyperglycemia leading to adverse outcomes in the growth and development. We reviewed the implications and risks of diabetes in . Diabetes in is associated with poorer outcomes if blood glucose levels are not well controlled. Potential effects of uncontrolled diabetes , or hyperglycemia, include: maternal risks (abnormal labors, prolonged labors, delivery, hemorrhage), risks (LGA profile, shoulder dystocia, stillbirth, delayed lung maturation) and subsequent risks ( hypoglycemia, polycythemia, hyperbilirubinemia with jaundice, seizures) In addition, women with diabetes in are at increased risk of developing hypertension diseases in ,such as gestational hypertension, or preeclampsia. Patient was explained that the high risk of shoulder dystocia in fetuses with EFW 4500 gm or higher. Long-term risk to offspring from poor maternal glycemic control include: obesity, cardiovascular disease, impaired glucose tolerance and Type 2 diabetes. Treatment for diabetes in : Lifestyle modification with a healthy diet and increasing physical activity can help manage hyperglycemia, and is therefore always encouraged. We briefly discussed diet modifications and physical activity. The mainstay of pharmacotherapy for the treatment of diabetes in remains insulin. Oral hypoglycemics, such as metformin, both cross the placenta and are more likely to fail compared to insulin. skilled nursing data on children whose mothers took oral hypoglycemic agents while is limited. Medication is typically initiated when >20-30% of the blood glucose values in one week are out of range. Risks and side effects of both insulin and oral agents were discussed. In discussion of the above, patients opts to initiating insulin, Lantus 20 units q.h.s. ordered. Glucose goals in : Fasting 60 - 95: Mean fasting glucose values are important in managing diabetes in women because they provide overall glycemic estimate, and are predictive of increased fat mass in the women s offspring. Increased fat mass has been shown to be associated with the development of childhood obesity, and diabetes. One hour postprandial 90 - 140: Postprandial measurements are important in management of diabetes in because they are associated with incidence of large for gestational age infants, and lower rates of delivery for cephalopelvic disproportion when well controlled. Discussed monitoring for hypogylcemia, and treatment of hypoglycemia. Discussed her current diet and her awareness of grams of carbohydrate per meal. Encouraged her to be aware of carbohydrate intake and note which foods causing values above goal. Encouraged her on diet modifications. Obesity MORBID, BMI 45 The patient has a BMI of > 40, which is a risk factor for adverse outcomes in . These possible complications including increased risks for miscarriage in the first trimester, congenital anomalies, hypertensive disorders of including preeclampsia, diabetes mellitus, demise, and delivery (with subsequent risks of wound infection, wound complications otherwise, and/or VTE). Due to the inability to monitor growth using fundal height measurements, serial growth assessment via US is recommended. We also recommend initiation of at least weekly ANFS at 36 weeks given the increased risk of demise in this setting. For women with a BMI>40 kg/m2, consider prophylactic low molecular weight heparin therapy for 3-5 days after or vaginal delivery. This is in addition to the use of sequential compression devices for the first 12-24 hours after surgery. For this extreme obesity, evidence favors a weight-based regimen of 0.5 mg/kg every 12 hours as thromboprophylaxis. Postural orthostatic tachycardia syndrome (POTS) Patient has remained asymptomatic since the 2nd trimester from a pots standpoint. She is currently managing symptoms with lifestyle modification. She has not on any medications. We reviewed the risks that is syncope Place on , including risk of placental abruption. Bipolar disorder/ Depression, lamotrigine Buspar: Adverse events have not been observed in animal reproduction studies. Due to lack of data, agents other than buspirone are preferred for use during . Consider discontinuing buspirone and using alternative therapies during unless there is a clear benefit to continuing treatment. Lamotrigine Lamotrigine has been safely used in for both epilepsy and history of bipolar disorder/depression. SUMMARY/RECOMMENDATION: Scheduled for [facility] ultrasound with growth in following week Third trimester A1c 06/07/2023: 5.4% Current blood glucose control: Poor control, has not been initiated on insulin despite fasting hyperglycemia since 05/13/2023 Medications: Initiated on Lantus 20 units q.h.s. Educated on signs symptoms of preeclampsia Monitor for movement growth ultrasounds every 4 weeks growth scan one week before planned delivery if attempt for a vaginal delivery Recommend the following for testing, which can be done with primary OB: NST/FILIBERTO weekly at 32 weeks NST twice weekly and FILIBERTO weekly at 36 weeks Delivery recommendations : Recommend delivery at [id number] Discuss delivery if estimated weight is >4500g Use 1/2 dose of insulin the night before her planned delivery. Will discuss at later gestation If she delivers by , recommend VTE prevention (LMWH 40mg daily) during hospitalization Obtain a 2-hour GTT 6-8 weeks . Also recommend yearly evaluation of blood glucose as patient is at an increased risk of developing diabetes later on. Monitor for signs symptoms of depression Follow up in [facility] with video visit in 1 week DISPOSITION: At this point the patient is in complete care of her boiler control technician. Patient does have ultrasound and office visit scheduled with us. Thank you for allowing me to participate in the care of Ana [place]. If there any questions please do not hesitate to contact us. Total time spent was 45 minutes: Preparing to see the patient (e.g., review of tests) Obtaining and/or reviewing separately obtained history Performing a medically appropriate examination and/or evaluation Counseling and educating the patient/family/caregiver Ordering medications, tests, or procedures Referring and communicating with other health reservoir caretaker (not separately reported) Documenting clinical information in the electronic or other health record Isabel Aragon MD Maternal- Medicine [facility] [address] [facility] [address] [place] [address] [facility], the CDC, and other organizations representing maternal and public health professionals recommend that , , and lactating people and those considering receive the COVID-19 vaccination. Vaccination is the best method to reduce maternal and complications of SARS-CoV-2 infection. This document was created with [employer] technology. Though I make every effort to review the dictation as it is transcribed, on occasion the spoken word can be misinterpreted by the technology leading to inappropriate words, phrases, or sentences. This note is addressed to the requesting provider as a consultation for clinical guidance. Specific medical abbreviations are occasionally used and those are generally approved by the [place]?Board of?Obstetrics and?Gynecology?as well as?Kayla s abbreviations. The above plan of care was based solely on the diagnoses for which a consultation was requested. ?More frequent testing may be indicated based on her other medical/obstetrical conditions. The management of other or medical conditions is beyond the scope of requested consultation and will continue to be followed by the primary boiler control technician or primary care provider. Note to patient: The Century Cures Act makes medical notes like these available to patients in the interest of transparency. However, be advised this is a medical document. It is intended as peer to peer communication. It is written in medical language and may contain abbreviations or verbiage that are unfamiliar. It may appear blunt or direct. Medical documents are intended to carry relevant information, facts as evident, and the clinical opinion of the practitioner. Headache/epigastric pain/blurry vision/swelling? Swelling in ankles Cramping/contractions? no Abnormal vaginal discharge? no Spotting/vaginal bleeding? no Loss of fluid like your water may have broken? no Cats in the home? yes Do you change the litter box? no Flu vaccine? yes Genetic testing done this here or other office? no Have you been seen here at [facility] in a previous ? N/a Recent ER visits or hospitalizations? no Bring blood sugar log or meter with you today? (Please bring them with you for every visit at [facility]) yes Traveled outside the country in the past 6 month no Any concerns that you would like me to mention to the provider today? no documented in this encounter [facility] [employer] 06-21-2023 History of Present illness Narrative DIABETES AND ASSESSMENT Type of diabetes: GDM Age at onset: 22 Duration: During this Still : OB History Para Term AB Living 2 0 0 0 1 0 SAB IAB Ectopic Multiple Live Births 1 0 0 0 0 Patient's last menstrual period was 10/15/2022. Estimated Date of Delivery: 07/30/23 No of wks at 1st visit:[id number] Results of glucose testing: Random 123 06/21/23 Date of one hour testing: Results: 206 05/09/23 Date of 3 hour Testing: Results A1C results and date:5.4% 06/07/23 Pre- BMI: Could not be calculated Calorie Prescription: Assessed Barriers to Education and Self Care [] Financial [] Anger [] Low Literacy [] Transportation [x] Anxiety [] Cogenitive deficit [] Lack of support [] Denial [] Other Other comments: Assessment DIABETES AND ASSESSMENT Mother of fetus Father of fetus Occupation and work hours Plating Equipment Tender Healthcare providers that care for you: OB Provider Family Doctor Link Cutter Name: Nivia Hinojosa CNM Name: Yara Duong MD Name: City: City: City: Last time seen: 06/21/23 Last time seen: Last time seen: Eye Doctor Dentist Other Doctors Name: Name: Name: City: City: City: Last time seen: Last time seen: Last time seen: OB History Para Term AB Living 2 1 SAB IAB Ectopic Multiple Live Births 1 # Outcome Date GA Lbr Jad/2nd Weight Sex Delivery Anes PTL Lv 2 Current 1 SAB 08/19/22 5w0d Allergies Allergen Reactions Penicillins Hives Current Outpatient Medications Medication Sig Dispense Refill busPIRone (BUSPAR) 15 mg tablet Take 1 tablet (15 mg total) by mouth in the morning and 1 tablet (15 mg total) before bedtime. cholecalciferol, vitamin D3, 2,000 units tablet 1 tablet (2,000 Units total) in the morning. cyproheptadine (PERIACTIN) 4 mg tablet Take 1 tablet (4 mg total) by mouth in the morning and at bedtime. 60 tablet 5 docusate sodium (COLACE) 100 mg capsule Take 1 capsule (100 mg total) by mouth in the morning and 1 capsule (100 mg total) before bedtime. lamoTRIgine (LaMICtal) 25 mg tablet Take 1 tablet (25 mg total) by mouth in the morning and 1 tablet (25 mg total) before bedtime. lancets (TRUEPLUS LANCETS) 28 gauge misc by miscellaneous route. USE DIRECTED. loratadine (CLARITIN) 10 mg tablet 1 tablet (10 mg total) in the morning. magnesium oxide (MAGOX) 400 mg tablet Take 1 tablet (400 mg total) by mouth in the morning. 30 tablet 5 nystatin (MYCOSTATIN) powder 2 (two) times a day as needed. omeprazole (PriLOSEC) 40 mg capsule Take 1 capsule (40 mg total) by mouth every morning before breakfast. ondansetron (ZOFRAN) 4 mg tablet TAKE ONE TABLET BY MOUTH EVERY 12 HOURS NEEDED FOR NAUSEA AND VOMITING 20 tablet 2 no115/iron/folic acid ( 19 ORAL) Take by mouth daily. riboflavin, vitamin B2, 100 mg tablet Take 1 tablet (100 mg total) by mouth in the morning. 30 tablet 5 coenzyme Q10 100 mg capsule Take 1 capsule (100 mg total) by mouth in the morning. (Patient not taking: Reported on 06/21/2023) 30 capsule 5 hydrOXYzine (VISTARIL) 25 mg capsule Take 1 capsule (25 mg total) by mouth. (Patient not taking: Reported on 06/21/2023) metFORMIN (GLUCOPHAGE) 500 mg tablet Take 1 tablet (500 mg total) by mouth 3 (three) times a day. (Patient not taking: Reported on 06/21/2023) No current facility-administered medications for this visit. Previous Hospitalizations None Past Surgical History: Procedure Laterality Date APPENDECTOMY WISDOM TOOTH EXTRACTION 06/2020 Personal diabetes history: History question Answer Diagnosis Date Comment Gestational Diabetes Unanswered Diabetes mellitus Yes Diabetes mellitus ([facility] [place] TYPE 2 Family History of diabetes: pertinent family history includes Diabetes in her maternal aunt, maternal grandfather, maternal grandmother, mother, and another family member. ROS: Constitutional: No problems Head and Neck: No problems Lungs and breathing: No problems Heart:: High cholesterol Blood disorders and other conditions: Anemia Mental health: Depression/anxiety and Bi-polar Kidney, Bladder, and Sexual History: No problems Circulation and Nerves: No problems Endocrine and Diabetes Conditions: Pre-diabetes, Insulin resistance, and Polycystic ovarian syndrome (PCOS) Stomach and Intestines: Nausea/vomiting and GERD (heartburn) Educational Level: associates degree Preferred Methods for Learning: Reading and Hands on demonstration Is there anything about your culture, islam, or personal beliefs we need to know about to care for you: Other None Primary Language spoken: Brazilian [22] Primary Language for learning: Brazilian Are you currently in a relationship where you are physically hurt, threatened or made to fee afraid? [] Yes [] No Animal Handler needed? [] Yes [] No Marital status/Living arrangements [x] [] Single [] Partner [x] Father of baby [] Friend [] Parent(s) [] Other family member [] Self Social History Social History Socioeconomic History Marital status: Spouse name: Not on file Number of children: Not on file Years of education: Not on file Highest education level: Not on file Occupational History Not on file Tobacco Use Smoking status: Never Smokeless tobacco: Never Vaping Use Vaping Use: Never used Substance and Sexual Activity Alcohol use: No Comment: occ Drug use: No Sexual activity: Yes Partners: Male control/protection: None Other Topics Concern Not on file Social History Narrative Not on file Social Determinants of Health Financial Resource Strain: Not on file Food Insecurity: No Food Insecurity (06/21/2023) Hunger Screening Food Insecurity - Worry: Never True Food Insecurity - Inability: Never True Transportation Needs: Not on file Physical Activity: Not on file Stress: Not on file Social Connections: Not on file Interpersonal Safety: Not on file Everyday Stress Level Stress Scale [] 1 Low [x] 2 [] 3 [] 4 [] 5 High Stress related to: overwhelmed; GDM Support systems: Very Good Comfort Level Are you currently experiencing any pain? [] Yes [x]No If yes, where: On thge following scale, [place] the number, which describes your current level of pain. [] 0 [] 1 [] 2 [] 3 [] 4 [] 5 [] 6 [] 7 [] 8 [] 9 [] 10 No Pain Worst Pain Possible How long does the pain last?: What do you do to help the pain go away? PLEASE COMPLETE THE FOLLOWING QUESTIONS - IF YOU HAVE DIABETES NOW OR HAVE HAD WITH A PREVIOUS HAVE YOU HAD ANY OF THE FOLLOWING SYMPTOMS OF LOW BLOOD SUGARS Shaky [] Yes [x] No Irritability [x] Yes [] No Heart Palpitations [] Yes [x] No Nervousness [x] Yes [] No Cold sweats [x] Yes [] No Headache [x] Yes [] No Passed out [] Yes [x] No Dizzy [x] Yes [] No Confusion [x] Yes [] No Seizures [] Yes [x] No What do you use to treat your low blood sugars? Snack with some sugar Diabetes Testing and Medication Use Yes No Do you currently use a glucose testing meter? If yes, how often do you test? Four times day [x] [] Did you take insulin during any of these previous pregnancies? [] [x] Have you ever received any diabetic education? If yes, where and when: [facility] Dietitian 06/01/23 [x] [] Patient and present for Diabetes Education. Given schedule to spread carbohydrates out throughout the day. Glucometer brought to appointment; demonstrated good knowledge base using glucometer. Instructed proper sharps disposal. Reviewed BG numbers from 06/14/23 - 06/21/23; noted all FBS and 5 PP elevated. Has had previous diagnosis of prediabetes; managed with weight loss and Metformin. Metformin stopped at 14 weeks gestation. Reported family history of diabetes. Discussed complications for mom and baby related to GDM. Random BG 123 today 06/21/23. Reviewed rapid and long acting insulin action times and recommended administration sites, timing and site rotation. Reviewed on insulin pen administration steps. Referred to Diabetes Self-Management Support Plan in folder. Discussed plan to check blood sugar four times daily, fasting and 1 hour after meals including sending them to weekly on Tuesday night/Tuesday and being active 30 minutes most days of the week with logging this on BG log weekly. Noted will contact weekly regarding BG log being reviewed and instructions/recommendations. Face to face time 65 minutes. . Nutritional Assessment Form Date: 06/21/2023 ALEX: Estimated Date of Delivery: 07/30/23 EGA: 34w3d Past Medical History: Diagnosis Date Anxiety Bipolar 1 disorder ([facility]) Chronic fatigue Chronic migraine w/o aura w/o status migrainosus, not intractable Depression Diabetes mellitus ([facility] [place]) TYPE 2 GERD (gastroesophageal reflux disease) Headache Mixed hyperlipidemia Obesity BMI 44.7 Panic disorder PCOS (polycystic ovarian syndrome) POTS (postural orthostatic tachycardia syndrome) Vertigo OB History 2 Para Term AB 1 Living SAB 1 IAB Ectopic Multiple Live Births Current Outpatient Medications Medication Sig Dispense Refill busPIRone (BUSPAR) 15 mg tablet Take 1 tablet (15 mg total) by mouth in the morning and 1 tablet (15 mg total) before bedtime. cholecalciferol, vitamin D3, 2,000 units tablet 1 tablet (2,000 Units total) in the morning. cyproheptadine (PERIACTIN) 4 mg tablet Take 1 tablet (4 mg total) by mouth in the morning and at bedtime. 60 tablet 5 docusate sodium (COLACE) 100 mg capsule Take 1 capsule (100 mg total) by mouth in the morning and 1 capsule (100 mg total) before bedtime. ferrous sulfate 325 (65 FE) mg EC tablet Take 1 tablet (325 mg total) by mouth in the morning and 1 tablet (325 mg total) in the evening. Take with meals. lamoTRIgine (LaMICtal) 25 mg tablet Take 1 tablet (25 mg total) by mouth in the morning and 1 tablet (25 mg total) before bedtime. lancets (TRUEPLUS LANCETS) 28 gauge misc by miscellaneous route. USE DIRECTED. loratadine (CLARITIN) 10 mg tablet 1 tablet (10 mg total) in the morning. magnesium oxide (MAGOX) 400 mg tablet Take 1 tablet (400 mg total) by mouth in the morning. 30 tablet 5 nystatin (MYCOSTATIN) powder 2 (two) times a day as needed. omeprazole (PriLOSEC) 40 mg capsule Take 1 capsule (40 mg total) by mouth every morning before breakfast. ondansetron (ZOFRAN) 4 mg tablet TAKE ONE TABLET BY MOUTH EVERY 12 HOURS NEEDED FOR NAUSEA AND VOMITING 20 tablet 2 no115/iron/folic acid ( 19 ORAL) Take by mouth daily. riboflavin, vitamin B2, 100 mg tablet Take 1 tablet (100 mg total) by mouth in the morning. 30 tablet 5 coenzyme Q10 100 mg capsule Take 1 capsule (100 mg total) by mouth in the morning. (Patient not taking: Reported on 06/21/2023) 30 capsule 5 hydrOXYzine (VISTARIL) 25 mg capsule Take 1 capsule (25 mg total) by mouth. (Patient not taking: Reported on 06/21/2023) metFORMIN (GLUCOPHAGE) 500 mg tablet Take 1 tablet (500 mg total) by mouth 3 (three) times a day. (Patient not taking: Reported on 06/21/2023) No current facility-administered medications for this visit. Present MNT Therapy: Counts carbs Insulin Therapy: na Date started: na Anthropometric Data: Height: Ht Readings from Last 1 Encounters: 06/21/23 167.6 cm (5' 6 ) Pre- Wt: 120.2 kg (265 lb) Pre- BMI: 42.79 Current BMI: Body mass index is 44.39 kg/m . Pre Wt. Category: Obese Current Weight: Wt Readings from Last 1 Encounters: 06/21/23 124.7 kg (275 lb) Weight Gain Goals: 11-20# Lab Data: BP BP Readings from Last 1 Encounters: 05/27/23 125/80 Hgb Hct OGCT OGTT HgA1C SMBG: Frequency : 4 Testing Times:see schedule Glucose meter:True Metrix Records Kept? [x] Yes [] No Lifestyle Factors: Occupation of the mother: Substance Abuse: Living Conditions Hours worked per week 40 hours weekly Educational Level associates degree Family issues caring for stepfather Cultural/ethnic/jew influences None Exercise approved by MD? Yes Current Exercise program walking in place; 15-20 minutes most days in addition to work Who prepares the meal both Who purchase food at your home? both Equipment use for cooking/food storage has all Food Assistance(Ex.WIC, Food [place]) declined Dining out Yes 1-2 a month Appetite/Appetite changes no change Weight History fluctuate Do you have cats at home? Feeding Plans Breast Feeding If you have cats, who cleans the litter box? Cravings/Aversions/Pica [place] food Nutrition Assessment Worksheet: Week/Weekend Food Recall Breakfast Egg cheese and sausage burrito Snack Pretzels and peanut butter Lunch Chicken with mashed potato Snack popcorn Dinner Beef and noodles Snack Some raisins Snack Time Patient present for diet instruction review per doctor order secondary to diagnosis of gestational diabetes. Noted history of PCOS. Food recall suggests patient typically consumes a diet of mainly healthy choices . Pt has gained 10# to date. Weight gain goal is 11-20#. Patient appears very willing to make any changes. Nutrition diagnosis: inconsistent and excessive carbohydrate intake, as evidenced by food recall, related to lack of nutrition knowledge. Instructed patient in 1900 kcal meal plan of 3 meals and 3 snacks, carbohydrate counting, label reading, dining out, blood glucose testing, and portion control. Discussed foods rich in iron and calcium. Reviewed blood glucoses testing procedures. Pt has a meter and supplies. Reviewed Diabetes Self-Management Support Plan. Pt chose [employer] to help manage her diabetes. Pt given handout of plan. Encouraged patient to limit dining out and measure food for 2 days. Pt demonstrated ability to plan a 45g carb meal, knowledge of blood glucose goals, and importance of exercise. Patient agreed to send RD a 2 day food log, send blood glucoses for review every Tuesday, and will call if weight loss. Patient is aware we will follow up weekly with a phone call to assess progress. Please refer to health habits for other goals. Face to Face time was 35 minutes.. documented in this encounter [facility] 06-21-2023 Instructions Cherelle Cosme RN - 06/21/2023 10:30 AM EST Daily Schedule - Diet [] GET UP 6:30 am [] Check sugar and record 6:30 am [] EAT BREAKFAST 7:45 am [] Check sugar 1 hour after start of meal and record 8:45 am [] Eat morning snack 10:45 am [] EAT LUNCH 12 pm [] Check sugar 1 hour after start of meal and record 1 pm [] Eat afternoon snack 3:30 pm [] EAT DINNER 6 pm [] Check sugar 1 hour after start of meal and record 7 pm [] Eat bedtime snack (HS) 9 pm BLOOD SUGAR GOALS: Before breakfast: 60-95 1 hours after meals 60-130 PLEASE REPORT BLOOD SUGARS: Over 100 before breakfast Over 130 after meals REMEMBER: EAT EVERY 3- 4 HOURS WHILE AWAKE documented in this encounter [facility] Evaluation note Diagnosis Gestational diabetes mellitus (GDM) in third trimester, gestational diabetes method of control unspecified [facility] Insulin controlled gestational diabetes mellitus (GDM) during , antepartum- Primary 34 weeks gestation of Severe obesity due to excess calories affecting , antepartum ([facility]) Bipolar affective disorder in remission ([facility]) Postural orthostatic tachycardia syndrome (POTS) [facility] Diagnosis Insulin controlled gestational diabetes mellitus (GDM) during , antepartum- Primary [facility] Diagnosis Diet controlled gestational diabetes mellitus (GDM) in third trimester- Primary Insulin controlled gestational diabetes mellitus (GDM) during , antepartum [facility] Diagnosis Insulin controlled gestational diabetes mellitus (GDM) during , antepartum documented [facility]* Diagnosis Non-reactive NST (non-stress test)- Primary Abnormal findings on screening NST (non-stress test) nonreactive Abnormal findings on screening Encounter for supervision of normal first , third trimester Gestational diabetes mellitus (GDM) requiring insulin [facility] filedocumented [facility] System[facility]ructionsNot on filedocumented in [facility] SystemInstructionsNot on filedocumented in this [facility] SystemInstructionsNot on filedocumented in [facility] InstructionsNot on filedocumented in [facility] InstructionsNot on filedocumented in this [facility] Summary Purpose Family History No Family History Records FoundNo Family History Records FoundNo Family History Records FoundNo Family History Records FoundNo Family History Records FoundNo Family History Records Found Advance Directives No Advanced Directives Records FoundDocuments on File Type Date Recorded Patient Instrument And Controls Technician Expl anation ACP-Advance Directive ACP-Power of Signing Teacher Assessments Diagnosis Screening for cervical cancer Screening for malignant neoplasm of the cervix Reason for Referral Specialty Diagnoses / Procedures Referred By Gaye aquino Referred To Contact Diagnoses Insulin controlled gestational diabetes mellitus (GDM) during , antepartum Isabel Aragon MD [address] [facility] 1st Floor [place] [id number] Referral ID Status Reason Start Date Expiration Date V isits Requested Visits Authorized [id number] Pending Review 1 1 Specialty Diagnoses / Procedures Referred By Gaye t Referred To Contact Maternal and Medicine Diagnoses Insulin controlled gestational diabetes mellitus (GDM) during , antepartum Procedures US MFM with or without consult Isabel Aragon MD [address] [place] [address] [facility]aternal [facility] [address] [place] [address] Referral ID Status Reason Start Date Expiration Date V isits Requested Visits Authorized [id number] Pending Review 06/23/2023 06/22/2024 1 1 Additional Source Comments INFORMATION SOURCE (unrecogn ized section and content) DATE CREATED AUTHOR 08/23/2018 [facility] DATE CREATED AUTHOR AUTHOR'S ORGANIZ ATION 09/05/2020 Rachel Tripathi [facility] DATE CREATED AUTHOR AUTHOR'S ORGANIZ ATION 11/09/2021 [facility] DATE CREATED AUTHOR AUTHOR'S ORGANIZ ATION 07/02/2023 [facility] DATE CREATED AUTHOR AUTHOR'S ORGANIZ ATION 07/03/2023 [facility] DATE CREATED AUTHOR AUTHOR'S ORGANIZ ATION 07/24/2023 [facility] EPIC Care Teams (unrecognized sec tion and content) Power Generation Engineer Relationship Specialty Start Date End Date Yara Duong MD [address] [place] [address] PCP - General 06/14/23 Power Generation Engineer Relationship Specialty Start Date End Date Yara Duong MD [address] [place] [address] PCP - General 06/14/23 Power Generation Engineer Relationship Specialty Start Date End Date Yara Duong MD [address] [place] [address] PCP - General 06/14/23 Power Generation Engineer Relationship Specialty Start Date End Date Yara Duong MD [address] [place] [address] PCP - General 06/14/23 Power Generation Engineer Relationship Specialty Start Date End Date Yara Duong MD [address] [facility] [place] [address] PCP - General 06/14/23 Power Generation Engineer Relationship Specialty Start Date End Date Yara Duong MD [address] [facility] [place] [address] PCP - General Family Medicine 06/27/23 North Olson NP [address] [place] [address] Nurse Practitioner Family Medicine 06/27/23 Power Generation Engineer Relationship Specialty Start Date End Date Yara Duong MD [address] [facility] [place] [address] PCP - General 06/14/23 Power Generation Engineer Relationship Specialty Start Date End Date Yara Duong MD [address] [facility] [place] [address] PCP - General Family Medicine 06/27/23 North Olson NP [address] [place] [address] Nurse Practitioner Family Medicine 06/27/23 Power Generation Engineer Relationship Specialty Start Date End Date Yara Duong MD [address] [facility] [place] [place] [address] PCP - General 06/14/23 Power Generation Engineer Relationship Specialty Start Date End Date Yara Duong MD [address] [place] [address] PCP - General Family Medicine 06/27/23 North Olson NP [address] [place] [address] Nurse Practitioner Family Medicine 06/27/23 Power Generation Engineer Relationship Specialty Start Date End Date Yara Duong MD [address] [place] [address] PCP - General Family Medicine 06/27/23 North Olson NP [facility] [place] [address] Nurse Practitioner Family Medicine 06/27/23 Reason for Visit (unrecogniz ed section and content) Reason Comments Gestational Diabetes Specialty Diagnoses / Procedures Referred By Contac t Referred To Contact Maternal and Medicine Diagnoses Gestational diabetes mellitus (GDM) in third trimester, gestational diabetes method of control unspecified Rita Hinojosa APRN-CNM [address] [place] [address] [facility] [address] [place] [address] Referral ID Status Reason Start Date Expiration Date Visits Requested Visits Authorized [id number] Pending Review Specialty Services Required 06/14/2023 06/13/2024 1 1 Reason Comments [id number] POTS Chronic Migraines FOR RECORDS PERTAINING TO PATIENTS WHO ARE OR HAVE BEEN ENROLLED IN A CHEMICAL DEPENDENCY/SUBSTANCEABUSE PROGRAM, SOME INFORMATION MAY BE OMITTED. This clinical summary was aggregated from multiple sources. Caution should be exercised in using it in the provision of clinical care. This summary normalizes information from multiple sources, and as a consequence, information in this document may materially change the coding, format and clinical context of patient data. In addition, data may be omitted in some cases. CLINICAL DECISIONS SHOULD BE BASED ON THE PRIMARY CLINICAL RECORDS. [facility] provides no warranty or guarantee of the accuracy or completeness of information in this document.
--- NOTE | 2023-07-26 10:15 | PC.NURSE ---
Tawana Jayer and 5 day old Jian arrive for follow up visit. Mom states we are tired but doing well . Misty's VSS and assessment WNL, reports small vaginal bleeding and minimal perineal discomfort. Caring for stitches with water bottle and dermaplast. She states is now only pumping and feeding as baby was under bili lights and baby stopped latching at that time. Mom states it is easier for me as my breasts are large and difficult to latch him Declines desire to return baby to breast. Pumps currently every 2 hours day and night. Give sample of pumping schedule, includes power pumps and one longer stretch of sleep for parents. Discussed methods to decrease workload of pumping for mom and parents in favor of all. Baby Jian doing well, VSS, and assessment WNL. Large clear void on scales and circ healing well. Parents deny questions or concerns at this time. Verbalized understanding of information provided and leaves ambulatory for home.
[2023-07-26 10:17] VITALS: BP 118/79; PULSE 98; RESP 16; TEMP 36.9; O2SAT 98
== END 2023-07-26 09:50 | disposition home or self-care (01) ==
LOC: FBCO 08:38
PROVIDERS: PCP Family Medicine; Visit Provider Pediatrics
DX: Z39.2 Encounter for routine postpartum follow-up (principal)